=== PATIENT | female | born 1945 | race Caucasian/White ===

== ENCOUNTER → 2017-04-18 07:58 | Outpatient (CLI) | payer OTHER, SELFPAY ==
[2017-04-18 10:42] LABS: Hemoglobin 13.6 g/dl (12.0-15.0); Mean Corp Hgb Conc 33.2 g/gl (32-36); Mean Corpuscular Hgb 31.5 pg (27.0-32.0); Mean Corpuscular Volume 94.9 fL (81-99); Platelet Count 210 K/mm3 (150-450); RBC Distribution Width CV 12.3 % (11.6-14.6); RBC Distribution Width SD 42.3 fl (35.1-43.9); Red Blood Count 4.32 M/mm3 (4.2-5.4); White Blood Count 2.8 K/mm3 (4.4-11.0)
[2017-04-18 10:55] LABS: Scan Indicated on CBC? Y/N NO
[2017-04-18 11:08] LABS: ALB/GLOB Ratio 1.2 RATIO (0.9-2.4); AST(SGOT) 21 U/L (15-37); Alanine Aminotransfer ALT/SGPT 18 U/L (13-56); Albumin, Serum 3.5 g/dL (3.2-5.0); Alkaline Phosphatase 55 U/L (45-117); Anion Gap 11 (5-15); BUN 8 mg/dL (7-18); BUN/Creat Ratio 14.4 RATIO (10-20); CRP < 2.90 mg/L (0.0-3.0); Calcium,Total 8.5 mg/dL (8.5-10.1); Chloride 105 mmol/L (98-107); Creatinine, Serum 0.56 mg/dL (0.55-1.02); EST Glomerular Filtration Rate 115 mL/min (>60); Est Glom Filt Rate - Afr Amer 139 mL/min (>60); Ferritin 36 ng/mL (8-252); Free T3 2.8 pg/mL (2.18-3.98); Globulin 2.8 g/dL (2.2-4.2); Glucose 98 mg/dL (74-106); Potassium 3.8 mmol/L (3.5-5.1); Protein, Total 6.3 g/dL (6.4-8.2); Sodium Level 143 mmol/L (136-145); Thyroid Stim Hormone (TSH) 0.46 uIU/mL (0.358-3.74)
[2017-04-18 12:10] LABS: Hemoglobin A1c 5.5 % (4.2-6.3)
== END ==
PROVIDERS: Family Provider Family Medicine; PCP Family Medicine; Visit Provider Family Medicine
DX: D72.9 Disorder of white blood cells, unspecified (principal); E03.9 Hypothyroidism, unspecified
CPT/HCPCS: 80053; 82728; 83036; 84443; 84481; 85027; 86140

== ENCOUNTER → 2017-08-02 08:00 | Outpatient (CLI) | payer OTHER, SELFPAY | PROVIDERS: Family Provider Family Medicine; PCP Family Medicine; Visit Provider Family Medicine | DX: Z00.00 Encounter for general adult medical examination without abnormal findings (principal); E03.9 Hypothyroidism, unspecified; K90.9 Intestinal malabsorption, unspecified; E55.9 Vitamin D deficiency, unspecified | CPT/HCPCS: 36415; 83036 ==

== ENCOUNTER → 2017-10-10 09:19 | Outpatient (CLI) | payer OTHER, SELFPAY ==
[2017-10-10 10:57] LABS: Vitamin D,25 Hydroxy 63.8 ng/mL (29.95-100.01)
[2017-10-10 11:01] LABS: Absolute Lymphocyte Count 1.33 X10^3/ul (0.83-4.51); Absolute Neutrophil Count 2.1 X10^3/uL (2.0-7.7); Basophil# 0.01 X10^3/uL; Basophil% 0.3 % (0-1); Eosinophil# 0.03 X10^3/uL; Eosinophils% 0.8 % (0-5); Hematocrit 40.6 % (37-47); Hemoglobin 13.4 g/dl (12.0-15.0); Lymphocyte # 1.33 X10^3/ul (4.0); Lymphocyte % 36.6 % (19-41); Mean Corpuscular Hgb 31.2 pg (27.0-32.0); Mean Corpuscular Volume 94.6 fL (81-99); Mean Platelet Vol. 9.3 fl (6.2-12.0); Monocyte% 5.5 % (0-10); Neutrophil # 2.06 X10^3/uL (2.7-7.7); Neutrophil % 56.8 % (47-70); Platelet Count 256 K/mm3 (150-450); RBC Distribution Width CV 12.1 % (11.6-14.6); RBC Distribution Width SD 41.1 fl (35.1-43.9); Red Blood Count 4.29 M/mm3 (4.2-5.4); White Blood Count 3.6 K/mm3 (4.4-11.0)
[2017-10-10 11:02] LABS: POSITIVE COUNT NO; POSITIVE DIFFERENTIAL NO; POSITIVE MORPHOLOGY NO
[2017-10-10 11:28] LABS: AST(SGOT) 22 U/L (15-37); Alanine Aminotransfer ALT/SGPT 20 U/L (13-56); Albumin, Serum 3.5 g/dL (3.2-5.0); Alkaline Phosphatase 92 U/L (45-117); Anion Gap 8 (5-15); BUN 12 mg/dL (7-18); CRP 4.39 mg/L (0.0-3.0); Calcium,Total 8.7 mg/dL (8.5-10.1); Chloride 107 mmol/L (98-107); Cholesterol 181 mg/dL (200); EST Glomerular Filtration Rate 105 mL/min (>60); Est Glom Filt Rate - Afr Amer 127 mL/min (>60); Ferritin 57 ng/mL (8-252); Free T3 3.2 pg/mL (2.18-3.98); Globulin 3.6 g/dL (2.2-4.2); Glucose 96 mg/dL (74-106); High Density Lipoprotein 74 mg/dL; Potassium 3.8 mmol/L (3.5-5.1); Protein, Total 7.1 g/dL (6.4-8.2); Sodium Level 141 mmol/L (136-145); T4 Free Direct 1.14 ng/dL (0.76-1.46); Thyroid Stim Hormone (TSH) 0.45 uIU/mL (0.358-3.74); Triglycerides 39 mg/dL; Very Low Density Lipoprotein 8 mg/dL (5-40)
== END ==
PROVIDERS: Family Provider Family Medicine; PCP Family Medicine; Visit Provider Family Medicine
DX: E55.9 Vitamin D deficiency, unspecified (principal); E03.9 Hypothyroidism, unspecified; K90.9 Intestinal malabsorption, unspecified
CPT/HCPCS: 36415; 80053; 80061; 82306; 82728; 84439; 84443; 84481; 85025; 86140

== ENCOUNTER → 2018-06-16 07:46 | Outpatient (CLI) | payer MEDICARE, OTHER, SELFPAY ==
[2018-06-16 10:28] LABS: Absolute Lymphocyte Count 1.25 X10^3/ul (0.83-4.51); Absolute Neutrophil Count 1.1 X10^3/uL (2.0-7.7); Basophil# 0.02 X10^3/uL; Basophil% 0.7 % (0-1); Eosinophil# 0.05 X10^3/uL; Eosinophils% 1.9 % (0-5); Hematocrit 39.8 % (37-47); Hemoglobin 13.4 g/dl (12.0-15.0); Lymphocyte # 1.25 X10^3/ul (4.0); Lymphocyte % 46.6 % (19-41); Mean Corp Hgb Conc 33.7 g/gl (32-36); Mean Corpuscular Hgb 32.3 pg (27.0-32.0); Mean Corpuscular Volume 95.9 fL (81-99); Mean Platelet Vol. 9.8 fl (6.2-12.0); Monocyte% 11.2 % (0-10); Neutrophil # 1.06 X10^3/uL (2.7-7.7); Neutrophil % 39.6 % (47-70); Platelet Count 228 K/mm3 (150-450); RBC Distribution Width CV 12.3 % (11.6-14.6); RBC Distribution Width SD 43.1 fl (35.1-43.9); Red Blood Count 4.15 M/mm3 (4.2-5.4); White Blood Count 2.7 K/mm3 (4.4-11.0)
[2018-06-16 10:35] LABS: POSITIVE COUNT NO; POSITIVE DIFFERENTIAL NO; POSITIVE MORPHOLOGY NO
[2018-06-16 10:55] LABS: ALB/GLOB Ratio 1.2 RATIO (0.9-2.4); AST(SGOT) 24 U/L (15-37); Alanine Aminotransfer ALT/SGPT 24 U/L (13-56); Albumin, Serum 3.6 g/dL (3.2-5.0); Alkaline Phosphatase 66 U/L (45-117); Anion Gap 5 (5-15); BUN 10 mg/dL (7-18); BUN/Creat Ratio 18.5 RATIO (10-20); Chloride 107 mmol/L (98-107); Cholesterol 181 mg/dL (200); Creatinine, Serum 0.54 mg/dL (0.55-1.02); EST Glomerular Filtration Rate 118 mL/min (>60); Est Glom Filt Rate - Afr Amer 143 mL/min (>60); Globulin 2.9 g/dL (2.2-4.2); Glucose 82 mg/dL (74-106); High Density Lipoprotein 68 mg/dL; Potassium 3.9 mmol/L (3.5-5.1); Protein, Total 6.5 g/dL (6.4-8.2); Sodium Level 142 mmol/L (136-145); T4 Free Direct 1.11 ng/dL (0.76-1.46); Thyroid Stim Hormone (TSH) 1.02 uIU/mL (0.358-3.74)
== END ==
PROVIDERS: Family Provider Family Medicine; PCP Family Medicine; Referring Provider Family Medicine; Visit Provider Family Medicine
DX: E03.9 Hypothyroidism, unspecified (principal); K90.9 Intestinal malabsorption, unspecified
CPT/HCPCS: 36415; 80053; 82465; 83718; 84439; 84443; 85025

== ENCOUNTER → 2018-06-30 12:51 | Outpatient (CLI) | payer MEDICARE, OTHER, SELFPAY ==
[2018-06-30 14:13] LABS: CRP < 2.90 mg/L (0.0-3.0)
[2018-06-30 14:15] LABS: Homocysteine 7.2 umol/L (3.2-10.7)
[2018-06-30 14:56] LABS: Vitamin D,25 Hydroxy 48.7 ng/mL (29.95-100.01)
== END ==
PROVIDERS: Family Provider Family Medicine; PCP Family Medicine; Referring Provider Family Medicine; Visit Provider Family Medicine
DX: R79.82 Elevated C-reactive protein (CRP) (principal); E55.9 Vitamin D deficiency, unspecified; K90.9 Intestinal malabsorption, unspecified
CPT/HCPCS: 36415; 82306; 83090; 86140

== ENCOUNTER → 2019-07-23 11:33 | Outpatient (CLI) | payer MEDICARE, OTHER, SELFPAY ==
[2019-07-23 15:22] LABS: Alanine Aminotransfer ALT/SGPT 38 U/L (13-56); Cholesterol 226 mg/dL (200); Creatinine, Serum 0.66 mg/dL (0.55-1.02); EST Glomerular Filtration Rate 94 mL/min (>60); Est Glom Filt Rate - Afr Amer 114 mL/min (>60); Glucose 103 mg/dL (74-106); High Density Lipoprotein 85 mg/dL; Triglycerides 60 mg/dL; Very Low Density Lipoprotein 12 mg/dL (5-40)
== END ==
PROVIDERS: PCP Family Medicine; Visit Provider Family Medicine
DX: E03.9 Hypothyroidism, unspecified (principal); Z13.220 Encounter for screening for lipoid disorders; Z79.899 Other long term (current) drug therapy
CPT/HCPCS: 80061; 82565; 82947; 84460

== ENCOUNTER → 2020-01-17 07:50 | Outpatient (CLI) | payer MEDICARE, OTHER, SELFPAY ==
[2020-01-17 10:29] LABS: Vitamin D,25 Hydroxy 82.6 ng/mL
[2020-01-17 10:41] LABS: ALB/GLOB Ratio 1.1 RATIO (0.9-2.4); AST(SGOT) 28 U/L (15-37); Alanine Aminotransfer ALT/SGPT 32 U/L (13-56); Albumin, Serum 3.7 g/dL (3.2-5.0); Alkaline Phosphatase 60 U/L (45-117); Anion Gap 3 (5-15); BUN 15 mg/dL (7-18); BUN/Creat Ratio 24.9 RATIO (10-20); Chloride 104 mmol/L (98-107); EST Glomerular Filtration Rate 104 mL/min (>60); Est Glom Filt Rate - Afr Amer 125 mL/min (>60); Globulin 3.4 g/dL (2.2-4.2); Glucose 93 mg/dL (74-106); Potassium 3.8 mmol/L (3.5-5.1); Protein, Total 7.1 g/dL (6.4-8.2); Sodium Level 139 mmol/L (136-145); T4 Free Direct 1.06 ng/dL (0.76-1.46); Thyroid Stim Hormone (TSH) 1.62 uIU/mL (0.358-3.74)
== END ==
PROVIDERS: PCP Family Medicine; Referring Provider Family Medicine; Visit Provider Family Medicine
DX: E03.9 Hypothyroidism, unspecified (principal); E55.9 Vitamin D deficiency, unspecified
CPT/HCPCS: 36415; 80053; 82306; 84439; 84443

== ENCOUNTER → 2020-08-28 12:02 | Outpatient (CLI) | payer MEDICARE, OTHER, SELFPAY ==
[2020-08-28 15:14] LABS: Hematocrit 40.1 % (37-47); Hemoglobin 13.2 g/dL (12.0-15.0); Mean Corp Hgb Conc 32.9 g/dL (32-36); Mean Corpuscular Hgb 31.6 pg (27.0-32.0); Mean Corpuscular Volume 95.9 fL (81-99); Mean Platelet Vol. 10.2 fl (6.2-12.0); Platelet Count 247 K/mm3 (150-450); RBC Distribution Width CV 11.9 % (11.6-14.6); RBC Distribution Width SD 41.7 fl (35.1-43.9); Red Blood Count 4.18 M/mm3 (4.2-5.4); White Blood Count 5.4 K/mm3 (4.4-11.0)
[2020-08-28 15:57] LABS: ALB/GLOB Ratio 1.2 RATIO (0.9-2.4); AST(SGOT) 25 U/L (15-37); Alanine Aminotransfer ALT/SGPT 27 U/L (13-56); Albumin, Serum 3.7 g/dL (3.2-5.0); Alkaline Phosphatase 67 U/L (45-117); Anion Gap 7 (5-15); BUN 13 mg/dL (7-18); BUN/Creat Ratio 22.1 RATIO (10-20); Calcium,Total 8.7 mg/dL (8.5-10.1); Chloride 103 mmol/L (98-107); Creatinine, Serum 0.59 mg/dL (0.55-1.02); EST Glomerular Filtration Rate 107 mL/min (>60); Est Glom Filt Rate - Afr Amer 129 mL/min (>60); Globulin 3.1 g/dL (2.2-4.2); Glucose 87 mg/dL (74-106); Protein, Total 6.8 g/dL (6.4-8.2); Sodium Level 138 mmol/L (136-145); T4 Free Direct 1.18 ng/dL (0.76-1.46)
[2020-08-28 23:28] LABS: Vitamin D,25 Hydroxy 58.5 ng/mL
== END ==
PROVIDERS: PCP Family Medicine; Referring Provider Family Medicine; Visit Provider Family Medicine
DX: E55.9 Vitamin D deficiency, unspecified (principal); E03.9 Hypothyroidism, unspecified; K90.9 Intestinal malabsorption, unspecified
CPT/HCPCS: 36415; 80053; 82306; 84439; 84443; 85027

== ENCOUNTER → 2021-07-07 | Outpatient (CLI) | payer MEDICARE, OTHER, SELFPAY ==
[2021-07-07 10:17] LABS: Absolute Lymphocyte Count 1.28 X10^3/uL (0.83-4.51); Basophil# 0.03 X10^3/uL; Basophil% 1.1 % (0-1); Eosinophil# 0.05 X10^3/uL; Eosinophils% 1.8 % (0-5); Hematocrit 39.8 % (37-47); Lymphocyte # 1.28 X10^3/ul (0.83-4.51); Lymphocyte % 47.2 % (19-41); Mean Corp Hgb Conc 32.7 g/dL (32-36); Mean Corpuscular Hgb 31.3 pg (27.0-32.0); Mean Corpuscular Volume 95.9 fL (81-99); Mean Platelet Vol. 9.7 fl (6.2-12.0); Monocyte% 11.1 % (0-10); NRBC Flagged by Analyzer 0 % (0-5); Neutrophil # 1.04 X10^3/uL (2.7-7.7); Neutrophil % 38.4 % (47-70); Platelet Count 227 K/mm3 (150-450); RBC Distribution Width CV 11.8 % (11.6-14.6); RBC Distribution Width SD 41.1 fl (35.1-43.9); Red Blood Count 4.15 M/mm3 (4.2-5.4); White Blood Count 2.7 K/mm3 (4.4-11.0)
[2021-07-07 10:42] LABS: ALB/GLOB Ratio 1.1 RATIO (0.9-2.4); AST(SGOT) 23 U/L (15-37); Alanine Aminotransfer ALT/SGPT 24 U/L (13-56); Albumin, Serum 3.3 g/dL (3.2-5.0); Alkaline Phosphatase 57 U/L (45-117); Anion Gap 6 (5-15); BUN 14 mg/dL (7-18); BUN/Creat Ratio 28.1 RATIO (10-20); Calcium,Total 8.5 mg/dL (8.5-10.1); Chloride 109 mmol/L (98-107); Cholesterol 183 mg/dL (200); EST Glomerular Filtration Rate 129 mL/min (>60); Est Glom Filt Rate - Afr Amer 156 mL/min (>60); Glucose 99 mg/dL (74-106); High Density Lipoprotein 69 mg/dL; Potassium 3.8 mmol/L (3.5-5.1); Protein, Total 6.3 g/dL (6.4-8.2); Sodium Level 141 mmol/L (136-145); T4 Free Direct 1.05 ng/dL (0.76-1.46); Triglycerides 52 mg/dL; Very Low Density Lipoprotein 10 mg/dL (5-40)
[2021-07-07 10:48] LABS: Vitamin D,25 Hydroxy 65.9 ng/mL
== END | disposition home or self-care (01) ==
LOC: MFPLAB 09:00
PROVIDERS: PCP Family Medicine; Referring Provider Family Medicine; Visit Provider Family Medicine
DX: E55.9 Vitamin D deficiency, unspecified (principal); E03.9 Hypothyroidism, unspecified; Z13.220 Encounter for screening for lipoid disorders; K58.0 Irritable bowel syndrome with diarrhea
CPT/HCPCS: 36415; 80053; 80061; 82306; 84439; 84443; 85025

== ENCOUNTER → 2022-04-06 | Outpatient (CLI) | payer MEDICARE, OTHER, SELFPAY ==
[2022-04-06 12:58] LABS: AST(SGOT) 27 U/L (15-37); Alanine Aminotransfer ALT/SGPT 26 U/L (13-56); Albumin, Serum 3.7 g/dL (3.2-5.0); Alkaline Phosphatase 64 U/L (45-117); Anion Gap 6 (5-15); BUN 17 mg/dL (7-18); BUN/Creat Ratio 29.1 RATIO (10-20); Calcium,Total 9.6 mg/dL (8.5-10.1); Chloride 107 mmol/L (98-107); Creatinine, Serum 0.58 mg/dL (0.55-1.02); EST Glomerular Filtration Rate 107 mL/min (>60); Est Glom Filt Rate - Afr Amer 129 mL/min (>60); Globulin 3.6 g/dL (2.2-4.2); Glucose 110 mg/dL (74-106); Potassium 4.4 mmol/L (3.5-5.1); Protein, Total 7.3 g/dL (6.4-8.2); Sodium Level 139 mmol/L (136-145); T4 Free Direct 1.06 ng/dL (0.76-1.46); Thyroid Stim Hormone (TSH) 1.86 uIU/mL (0.358-3.74)
[2022-04-06 13:12] LABS: Vitamin D,25 Hydroxy 91.5 ng/mL
== END | disposition home or self-care (01) ==
PROVIDERS: PCP Family Medicine; Referring Provider Family Medicine; Visit Provider Nurse Practitioner Family
DX: K58.0 Irritable bowel syndrome with diarrhea (principal); R94.6 Abnormal results of thyroid function studies; E55.9 Vitamin D deficiency, unspecified
CPT/HCPCS: 36415; 80053; 82306; 84439; 84443

== ENCOUNTER → 2022-09-30 | Outpatient (CLI) | payer MEDICARE, OTHER, SELFPAY ==
[2022-09-30 10:45] LABS: Absolute Lymphocyte Count 0.96 X10^3/uL (0.83-4.51); Absolute Neutrophil Count 1.9 X10^3/uL (2.0-7.7); Basophil# 0.03 X10^3/uL; Basophil% 0.9 % (0-1); Eosinophil# 0.07 X10^3/uL; Eosinophils% 2.2 % (0-5); Hematocrit 40.1 % (37-47); Lymphocyte # 0.96 X10^3/ul (0.83-4.51); Lymphocyte % 29.9 % (19-41); Mean Corp Hgb Conc 32.4 g/dL (32-36); Mean Corpuscular Hgb 31.2 pg (27.0-32.0); Mean Corpuscular Volume 96.2 fL (81-99); Mean Platelet Vol. 9.3 fl (6.2-12.0); Monocyte# 0.28 X10^3/uL; Monocyte% 8.7 % (0-10); NRBC Flagged by Analyzer 0 % (0-5); Neutrophil # 1.87 X10^3/uL (2.7-7.7); Neutrophil % 58.3 % (47-70); Platelet Count 252 K/mm3 (150-450); RBC Distribution Width CV 12.5 % (11.6-14.6); RBC Distribution Width SD 43.9 fl (35.1-43.9); Red Blood Count 4.17 M/mm3 (4.2-5.4); White Blood Count 3.2 K/mm3 (4.4-11.0)
[2022-09-30 11:24] LABS: ALB/GLOB Ratio 1.1 RATIO (0.9-2.4); AST(SGOT) 18 U/L (15-37); Alanine Aminotransfer ALT/SGPT 21 U/L (13-56); Albumin, Serum 3.5 g/dL (3.2-5.0); Alkaline Phosphatase 62 U/L (45-117); Anion Gap 4 (5-15); BUN 13 mg/dL (7-18); BUN/Creat Ratio 22.5 RATIO (10-20); Calcium,Total 8.4 mg/dL (8.5-10.1); Chloride 109 mmol/L (98-107); Creatinine, Serum 0.58 mg/dL (0.55-1.02); EST Glomerular Filtration Rate 108 mL/min (>60); Est Glom Filt Rate - Afr Amer 130 mL/min (>60); Globulin 3.2 g/dL (2.2-4.2); Glucose 103 mg/dL (74-106); Protein, Total 6.7 g/dL (6.4-8.2); Sodium Level 140 mmol/L (136-145); T4 Free Direct 1.01 ng/dL (0.76-1.46); Thyroid Stim Hormone (TSH) 1.24 uIU/mL (0.358-3.74)
[2022-09-30 21:44] LABS: Vitamin D,25 Hydroxy 72.7 ng/mL
== END | disposition home or self-care (01) ==
LOC: MTLAB 08:02
PROVIDERS: PCP Family Medicine; Visit Provider Family Medicine
DX: K58.0 Irritable bowel syndrome with diarrhea (principal); E03.9 Hypothyroidism, unspecified; E55.9 Vitamin D deficiency, unspecified
CPT/HCPCS: 36415; 80053; 82306; 84439; 84443; 85025

== ENCOUNTER → 2022-11-19 | Outpatient (CLI) | payer MEDICARE, OTHER, SELFPAY ==
[2022-11-19 18:17] LABS: ALB/GLOB Ratio 1.1 RATIO (0.9-2.4); AST(SGOT) 20 U/L (15-37); Alanine Aminotransfer ALT/SGPT 25 U/L (13-56); Albumin, Serum 3.4 g/dL (3.2-5.0); Alkaline Phosphatase 59 U/L (45-117); Anion Gap 4 (5-15); BUN 12 mg/dL (7-18); BUN/Creat Ratio 20.2 RATIO (10-20); Calcium,Total 8.4 mg/dL (8.5-10.1); Chloride 105 mmol/L (98-107); Creatinine, Serum 0.59 mg/dL (0.55-1.02); EST Glomerular Filtration Rate 105 mL/min (>60); Est Glom Filt Rate - Afr Amer 127 mL/min (>60); Globulin 3.2 g/dL (2.2-4.2); Glucose 92 mg/dL (74-106); Lipase 63 U/L (13-75); Potassium 4.1 mmol/L (3.5-5.1); Protein, Total 6.6 g/dL (6.4-8.2); Sodium Level 136 mmol/L (136-145)
== END | disposition home or self-care (01) ==
PROVIDERS: PCP Family Medicine; Referring Provider Family Medicine; Visit Provider Family Medicine
DX: K58.0 Irritable bowel syndrome with diarrhea (principal)
CPT/HCPCS: 36415; 80053; 83690

== ENCOUNTER → 2023-04-11 | Outpatient (CLI) | payer MEDICARE, OTHER, SELFPAY ==
--- OUTSIDE RECORDS SUMMARY | 2023-04-11 09:27 | XMS RPT_ITS | CCD ---
Author Name Unknown Address [address] [place] [address] Organization [facility] Care Team Providers Care Mechanical Sound Technician Name Role Phone Anil Boss MD Primary Care Provider BOSS, ANIL A Primary Care Unavailable LUNA BEDOLLA Referring Unavailable LUNA BEDOLLA Attending Unavailable DONG, PHILLIPA Attending Unavailable BOSS, ANIL A Primary Care Unavailable BOSS, ANIL A Primary Care Unavailable FLAVIA GONZALEZ Attending Unavailable BOSS, ANIL A Primary Care Unavailable CAMILO SCHAEFER Attending Unavailable DONG, SWATI Attending Unavailable BOSS, ANIL A Primary Care Unavailable DONG, PHILLIPA Attending Unavailable BOSS, ANIL A Primary Care Unavailable DONG, PHILLIPA Attending Unavailable BOSS, ANIL A Primary Care Unavailable BOSS, ANIL A Primary Care Unavailable LUNA BEDOLLA Attending Unavailable DONG, PHILLIPA Attending Unavailable BOSS, ANIL A Primary Care Unavailable DONG, PHILLIPA Attending Unavailable BOSS, ANIL A Primary Care Unavailable BOSS, ANIL A Primary Care Unavailable ALLEY PATTERSON Attending Unavailable DONG, SWATI Attending Unavailable BOSS, ANIL A Primary Care Unavailable BOSS, ANIL A Primary Care Unavailable LUNA BEDOLLA Attending Unavailable DONG, PHILLIPA Attending Unavailable BOSS, ANIL A Primary Care Unavailable DONG, CHRISA Attending Unavailable BOSS, ANIL A Primary Care Unavailable DONG, PHLILIPA Attending Unavailable BOSS, ANIL A Primary Care Unavailable DONG, PHILLIPA Attending Unavailable BOSS, ANIL A Primary Care Unavailable BOSS, ANIL A Primary Care Unavailable CAMILO SCHAEFER Attending Unavailable BOSS, ANIL A Primary Care Unavailable ALLEY PATTERSON Referring Unavailable DONG, PHILLIPA Attending Unavailable BOSS, ANIL A Primary Care Unavailable DONG, CHRISA Attending Unavailable BOSS, ANIL A Primary Care Unavailable Allergies Allergy Classification Reported Allergen(s) Allergy Type Date of Onset Reaction(s) Facility (20 sources) EPINEPHrine; Translations: [EPINEPHRINE] Drug Allergy 07-08-2006 Mental Status Change [facility] Work Phone: Medications Completed/Discontinued Medications Medication Drug Class(es) Dates Sig (Normalized) Sig (Original) Activated Charcoal (8 sources) Start: 04-14-2022 End: 09-28-2022 Activated Charcoal ([employer]) 1 capsules, 2 times daily 90 capsule 0 04/14/2022 09/28/2022 Discontinued Problems Active Problems Problem Classification Problem Date Documented Da te Episodic/Chronic Adjustment disorders (16 sources) Adjustment disorder with mixed anxiety and depressed mood; Translations: [Adjustment disorder with mixed anxiety and depressed mood] Chronic Diseases of white blood cells (20 sources) Neutropenia; Translations: [Neutropenia, unspecified] Onset: 04-26-2017 04-26-2017 Chronic Malaise and fatigue (1 source) Fatigue; Translations: [Other fatigue] 02-11-2023 Episodic Other circulatory disease (1 source) Clearing throat - hawking; Translations: [Other specified symptoms and signs involving the circulatory and respiratory systems] Episodic Other gastrointestinal disorders (1 source) Constipation; Translations: [Constipation, unspecified] 09-28-2022 Episodic Other gastrointestinal disorders (1 source) Abnormal feces; Translations: [Other fecal abnormalities] 11-13-2022 Episodic Other gastrointestinal disorders (1 source) Other functional disorders of intestine; Translations: [Intestinal dysbiosis] 02-11-2023 Episodic Residual codes; unclassified (4 sources) Contact with and (suspected) exposure to mold (toxic); Translations: [Contact with and (suspected) exposure to mold] Episodic Viral infection (1 source) Disease caused by 2019-nCoV; Translations: [COVID-19] Episodic Past or Other Problems Problem Classification Problem Date Documented Da te Episodic/Chronic Other gastrointestinal disorders (20 sources) Loose stool; Translations: [Other fecal abnormalities] Onset: 08-29-2019 08-29-2019 Episodic Results Test Name Value Interpretation Reference Range Facil ity Encounters Encounter Date Encounter Type Care Provider Facility Start: 03-18-2023 End: 03-18-2023 ambulatory [facility] Facility:[facility] Start: 02-18-2023 End: 02-18-2023 ambulatory [facility] Facility:[facility] Start: 02-11-2023 End: 02-11-2023 ambulatory ANIL BOSS Facility:[facility] Start: 02-11-2023 End: 02-11-2023 ambulatory Alley Patterson TOILET ATTENDANT.VEHICLE FARE COLLECTOR Work Phone: Functional Medicine Procedures Date Procedure Procedure Detail Performing Clinician Start: 01-26-2020 Adult depression scr eening assessment Swati HOFFMAN Work Phone: Start: 11-20-2018 Lipid 1996 panel - S dori or Plasma Alley Patterson TOILET ATTENDANT.VEHICLE FARE COLLECTOR Work Phone: Start: 11-14-2008 Mammography Swati driscoll ADMISSION SPECIALIST Work Phone: Plan of Treatment Date Care Activity Detail Author Start: 11-21-2023 Lipid 1996 panel - Serum or Plasma Lipid Screening [facility] Start: 11-21-2023 Lipid panel Lipid Screening [facility] Start: 11-21-2023 LIPID SCREEN LIPID SCREEN [facility] Start: 10-15-2022 Covid-19 Vaccine () Covid-19 Vaccine () [facility] Start: 10-15-2022 Influenza vaccination [facility] Start: 02-14-2022 ADVANCE DIRECTIVE DISCUSSION ADVANCE DIRECTIVE DISCUSSION [facility] Start: 02-14-2022 DEPRESSION ASSESSMENT DEPRESSION ASSESSMENT [facility] Start: 11-20-2021 DIABETES SCREEN DIABETES SCREEN [facility] Start: 11-20-2021 Diabetes Screening Diabetes Screening [facility] Start: 10-15-2021 Influenza vaccination [facility] Start: 04-18-2021 Urine microalbumin profile DTaP,Tdap,Td Vaccine (2 - Td or Tdap) [facility] Start: 04-17-2021 COVID-19 VACCINE (3 - Booster for Merline series) COVID-19 VACCINE (3 - Booster for Merline series) [facility] Start: 02-14-2021 ADVANCE DIRECTIVE DISCUSSION ADVANCE DIRECTIVE DISCUSSION [facility] Start: 02-12-2021 COVID-19 VACCINE (3 - Booster for Merline series) COVID-19 VACCINE (3 - Booster for Merline series) [facility] Start: 01-25-2021 Adult depression screening assessment DEPRESSION SCREENING [facility] Start: 04-28-2012 BONE DENSITY BONE DENSITY [facility] Start: 04-28-2012 Bone Density Screening Bone Density Screening [facility] Start: 04-28-2012 Pneumococcal Vaccine: 65+ (1 - PCV) Pneumococcal Vaccine: 65+ (1 - PCV) [facility] Start: 04-28-2012 Pneumococcal Vaccine: 65+ (1 of 1 - PCV) Pneumococcal Vaccine: 65+ (1 of 1 - PCV) [facility] Start: 04-28-2012 PNEUMOCOCCAL: 65+ (1 - PCV) PNEUMOCOCCAL: 65+ (1 - PCV) [facility] Start: 04-28-2012 PNEUMOVAX AGE 65 AND OVER WITH 5YR LOOKBACK (#1) PNEUMOVAX AGE 65 AND OVER WITH 5YR LOOKBACK (#1) [facility] Start: 04-28-2012 Screening for osteoporosis Bone Density Screening [facility] Start: 11-14-2009 Mammography MAMMOGRAM [facility] Start: 2007 RSV Vaccine (1 - 1-dose 60+ series) RSV Vaccine (1 - 1-dose 60+ series) [facility] Start: 04-28-1997 SHINGRIX VACCINE (1 of 2) SHINGRIX VACCINE (1 of 2) [facility] Start: 04-28-1992 COLOGUARD (FIT-DNA) COLOGUARD (FIT-DNA) [facility] Start: 04-28-1992 Colonoscopy COLONOSCOPY [facility] Start: 04-28-1992 COLORECTAL CANCER SCREENING COLORECTAL CANCER SCREENING [facility] Start: 04-28-[address] COLONOGRAPHY [facility] Start: 04-28-1992 FECAL OCCULT BLOOD FECAL OCCULT BLOOD [facility] Start: 04-28-1992 Screening for malignant neoplasm of colon [facility] Start: 04-28-1992 SIGMOIDOSCOPY SIGMOIDOSCOPY [facility] Start: 04-28-1966 Urine microalbumin profile [facility] Start: 04-28-1965 HEPATITIS C SCREENING HEPATITIS C SCREENING [facility] Start: 04-28-1965 Hepatitis C screening Hepatitis C Screening [facility] FM GI EFFECTS, 1 STO OL SPECIMEN FM GI EFFECTS, 1 STOOL SPECIMEN Lab Routine Mold exposure Constipation, unspecified constipation type Ordered: 09/28/2022 [facility] Work Phone: Payers Date Payer Category Payer Medicare MEDICARE MEDICAR E A AND B [id number] 2017-Present [phone] [id number] [place] [id number] Medicare [id number] 2017 Medicare MEDICARE MEDICAR E A AND B [id number] 2017-Present [phone] [place] [address] Medicare [id number] 2017 Medicare [id number] 2017 Unknown PHYSICIANS M[employer] PHYSICIANS MUTUAL SUPPLEMENT [id number] 2017-Present [phone] [address] [place] [address] Indemnity [id number] 2017 Unknown PHYSICIANS [employer] PHYSICIANS MUTUAL SUPPLEMENT [id number] 2017-Present [phone] [address] [place] [address] Indemnity [id number] 2017 Unknown [id number] Social History Date Type Detail Facility [facility]: [facility]-26-2017 [facility] Work Phone: End: 04-26-1977 History of tobacco use Current smoker [facility] End: 04-26-1977 History of tobacco use Cigarette Smoker [facility] Start: 08-29-2019 Alcohol intake Current non-dr [employer] food & cooking of alcohol (finding) [facility] Start: 08-29-2019 End: 06-18-2022 Alcohol intake [facility] Start: 04-26-2017 Tobacco Comment Pt smoked 1-2 packs daily on & off x 10 years. [facility] Start: 1945 Sex Assigned At Not on file C [facility] Start: 06-09-2021 End: 10-30-2021 Exposure to SARS-CoV-2 (event) Not sure [facility] Start: 04-26-2017 Tobacco use and exposure Smokeless tobacco non-user [facility] Start: 08-29-2019 End: 06-18-2022 Tobacco use panel [facility] Adult Depression Screening Assessment 0 [facility] Start: 08-24-2019 Gender identity Identifies as female gender (finding) [facility] Start: 08-24-2019 Sexual orientation Heterosexual (yaron hernandez) [facility] Clinical Notes 07-14-2021 to 03-18-2023 Patient InstructionsAlley Patterson APRN.VEHICLE FARE COLLECTOR - 02/11/2023 2:30 PM Luna Kramer MD - 09/28/2022 8:30 AM Vinnie Bedolla MD - 04/14/2022 9:00 AM EST Note Date & Type Note Facility 03-18-2023 Note HNO ID: [id number] Author: SWATI UMANA LISW Service: ? Author Type: Whitewasher Type: Progress Notes Filed: 03/18/2023 09:31 Note Text: Virtual Visit I have communicated my name and active licensure. The patient's identity and physical location were verified at the time of this visit. The patient has been informed of the risks and benefits of -- and alternatives to -- treatment through a remote evaluation and consents to proceed with the evaluation remotely. DATE OF SERVICE: 03/18/2023 Duration: 60 min Start 8:30 am End 9:30 am SUBJECTIVE: Pt presented today with processing dynamics that triggered feelings of rejection. Diagnosis: adjustment disorder with mixed anxiety and depressed mood Mental Status: Mood: euthymic Affect: appropriate Thoughts/Associations:goal directed Suicidal/Homicidal Ideation: None expressed or evidenced PROGRESS TO DATE: Pt was able to reach a deep level of relaxation and to access somatic experiencing and memories, which appear to have significant impact on dis-empowerment and feelings of rejection. Pt began to work through these emotionally painful memories through conflict resolution and expression of feelings. Pt seemed to gain increased insight into how long repressed emotions seem to be impacting pain and unwanted behaviors. Pt was taught techniques for facilitating a state of relaxation and reducing stress level through inner child work. GENERAL COMPLIANCE WITH ONGOING TREATMENT PLAN: PT reports using the mind/body tools regularly since last session. Reports exploring issues that came up last session. INTERVENTION(S) Talk psychotherapy, [place], CBT interventions, Gestalt emotional Release work, ACT, positive psychology, Regression Therapy, Interactive Guided Imagery, Conflict resolution w Breath therapy, supportive interactions, interpretation of unconscious motivation, ego strengthening, Clarification of behavioral patterns, discussion of alternatives, identification of emotions, processing of reactions, validation and conflict exploration DAILY PRACTICE: Movement and excercise Breathe Mindfulness Meditation at least 2X per day Journaling daily Positive affirmations PAIN SCALE: FOLLOW UP: 4 week. ADDITIONAL NOTES: Pt to continue to explore issues that topher from today's session. PLAN: Continue to explore issues pertaining to inner child awareness and validation. CELSO Santiago LISW-S, [facility] Psychotherapist [facility] 02-18-2023 Note HNO ID: [id number] Author: SWATI UMANA LISW Service: ? Author Type: Whitewasher Type: Progress Notes Filed: 02/18/2023 14:02 Note Text: Virtual Visit I have communicated my name and active licensure. The patient's identity and physical location were verified at the time of this visit. The patient has been informed of the risks and benefits of -- and alternatives to -- treatment through a remote evaluation and consents to proceed with the evaluation remotely. DATE OF SERVICE: 02/18/2023 Duration: 60 min Start 1:00 pm End 2:00 pm SUBJECTIVE: Pt presented today with concern regarding medical care. Pt is contemplating advanced directives and what she wants and does not want for herself. Diagnosis: adjustment disorder with mixed anxiety and depressed mood Mental Status: Mood: neutral Affect: appropriate Thoughts/Associations:goal directed Suicidal/Homicidal Ideation: None expressed or evidenced PROGRESS TO DATE: Pt was able to discuss thoughts and emotions regarding her medical care, which appear to have significant impact on stress. Pt began to work through these emotional triggers through conflict resolution and expression of feelings. Pt seemed to gain increased insight into how she may process her wished for end of life issues. GENERAL COMPLIANCE WITH ONGOING TREATMENT PLAN: PT reports using the mind/body tools regularly since last session. Reports exploring issues that came up last session. INTERVENTION(S) Talk psychotherapy, [place], CBT interventions, supportive interactions, interpretation of unconscious motivation, ego strengthening, identification of emotions, processing of reactions, validation, identification and setting of healthy boundaries, communication exercises and conflict exploration DAILY PRACTICE: Movement and excercise Breathe Mindfulness Meditation at least 2X per day Journaling daily Positive affirmations PAIN SCALE: FOLLOW UP: 4 week. ADDITIONAL NOTES: Pt to continue to explore issues that topher from today's session. PLAN: Continue to explore issues pertaining to journal wishes for end of life and medical treatment. Swati Umana, CELSO, JOVAN, ASADT Holistic Psychotherapist [facility] 02-18-2023 Note HNO ID: [id number] Author: CAMILO SCHAEFER RD Service: ? Author Type: Registered Dietitian Type: Progress Notes Filed: 02/21/2023 10:13 Note Text: [facility] Nutrition Therapy: Follow-Up Assessment (Individual) VIRTUALVISITPN I have communicated my name and active licensure. The patient's identity and physical location were verified at the time of this visit. Either the patient or their legal statement services representative has been informed of the risks and benefits of -- and alternatives to -- treatment through a remote evaluation and consents to proceed with the evaluation remotely. Patient is located in the [facility] at the time of the virtual visit. Patient Name: Cody Meier Past Medical History: PAST MEDICAL HISTORY Diagnosis Date Gluten intolerance NEGATIVE MEDICAL HISTORY Other voice and resonance disorders due to multiple allergies Uterine prolapse Allergies: Epinephrine Current Medications/Supplements Current Outpatient Medications on File Prior to Visit Medication Sig Biocidin Advanced Formula ([employer]) Take 5 Drops by mouth three times a day. Olivirex ([employer]) Take one capsule up to three times per day between meals, 60ct O.N.E. Multivitamin (Pure Encapsulations) 1 capsule daily, with a meal, 60 ct Target GB-X ([employer]) Dissolve the content of 1 sachet daily in water (3-4 oz.), preferably lukewarm, and stir before consumption. Take on an empty stomach in the morning, before bed, or as directed by a healthcare professional. Digestion GB 180 ct. (Pure Encapsulations) Take 1 capsule with meals OTC NUTRITIONAL SUPPLEMENT lysine Magnesium Glycinate 120 mg (Pure Encapsulations) Take 2 capsules in the evening and 2 in the daytime O.N.E. [place]coe (Pure Encapsulations) Take 2 capsules by mouth daily with food. Vitamin D3 5000 IUs (Pure Encapsulations) Take 1 capsule by mouth daily with food. No current facility-administered medications on file prior to visit. Primary ICD-10 Diagnosis Addressed: Fatigue, unspecified type [R53.83] Provider Nutrition NotesFollow up with packing machine feeder to ensure sufficient daily protein. Sufficient protein will help with fatigue and sugar cravings Status of Chief Concerns Stol inconennce (main concern)- GONE Main concern today 02/2023: ensure sufficient daily protein. Nutrition Assessment (updated 02/18/23) Current Symptom Review: continued fatigue and sugar cravings Food and Nutrition History (update): Vegan, uses Pea protein Current Adverse Reactions to Foods: No Diet Recall: Yes 24 Hour Recall Breakfast: Smoothie: almond yogurt (homemade)+ 1 banana +spring mix + vital proteins marine collagen- 3 tablespoons Lunch: saurkraut, red lentil and sweet potato soup Chicken thighs Dinner: hit or miss, sometimes popcorn Snacks: not specified Beverages: 1/3 cup of kombucha, 1/2 cup of saurkaut Steel cut oats Anthropometrics There were no vitals taken for this visit. Last Height: Last 1 Encounter Ht Readings: Date: Ht: 11/29/2019 162.6 cm (5' 4 ) Last Weight: Last Wt 11/29/19 : 53.9 kg (118 lb 14.4 oz) 08/29/19 : 54.6 kg (120 lb 4.8 oz) 04/30/19 : 54.1 kg (119 lb 4.8 oz) Wt: 53.9 kg (118 lb 14.4 oz) BMI: 20.41 kg/(m2) Learning Needs Assessment: Barriers to Learning: Ready to Learn (no barriers noted) Assessed motivation to learn: moderate Biochemical and Laboratory Data Conventional/Advanced Testing See uploaded labs Vitamin D Apr 06 2022- 91.5 Laboratory Values Addressed: None addressed today Nutrition Prescription Energy: RMR can't be calculated - Weight unrecorded in last 120 days. Protein: 1.0g/kg Nutrients of Concern: Protein Nutrition Diagnosis: Inadequate Protein Energy Intake related to limited education on daily protein needs and protein rich foods as evidenced by diet history described, est less than 65 grams of protein per day. Status: New Nutrition Intervention (New and Reinforcement): Current Nutrition Goal(s): promote adequate nutritional intake to meet macro and micronutrient needs Food Plan: Custom Aim for 65-70 grams of protein per day Try to not skip dinner. If not that hungry, try to have something higher in protein like tofu or a class of soymilk Cook quinoa in bone broth Add pea protein Add nuts and seeds as snacks, sprinkle seeds like hemp seeds on meals Add nutritional yeast to meals Make sure to include beans, lentils, tofu, tempeh daily Use this Protein [place] - modify for vegan 1/4 cup nuts/seeds = 5-8g 1/4 cup flax: 5g 1/4 cup pumpkin seeds: 7g 1 ounce conor seeds: 5g 3 Tbsp. hemp seeds = 10g 2 Tbsp. nut butter = 7g 1 cup bone broth = 7-9g 1 oz animal protein or fish = 7g 1 egg = 6g 1 egg white = 3 g 1 cup Bengali yogurt = 13g 3 oz. firm tofu = 7g 1 cup organic soymilk=6-8g 1/2 cup edamame: 8g 1/2 cup beans (cooked) = 7g 1 cup lentils (cooked) = 18g 1 c (more content not included)... [facility] 02-11-2023 Note HNO ID: [id number] Author: Alley Patterson APRN.VEHICLE FARE COLLECTOR Service: ? Author Type: Nurse Practitioner Type: Progress Notes Filed: 02/11/2023 3:12 PM Note Text: Follow-up Visit - virtual I have communicated my name and active licensure. The patient's identity and physical location were verified at the time of this visit. Either the patient or their legal statement services representative has been informed of the risks and benefits of -- and alternatives to -- treatment through a remote evaluation and consents to proceed with the evaluation remotely. Patient: Cody Meier There is no height or weight on file to calculate BMI. RMR can't be calculated - Weight unrecorded in last 120 days. Waist measurement: No waist measurement recorded. BP: ALLERGIES Allergen Reactions Epinephrine Mental Status Change passed out Current Outpatient Medications on File Prior to Visit Medication Sig O.N.E. Multivitamin (Pure Encapsulations) 1 capsule daily, with a meal, 60 ct Target GB-X ([employer]) Dissolve the content of 1 sachet daily in water (3-4 oz.), preferably lukewarm, and stir before consumption. Take on an empty stomach in the morning, before bed, or as directed by a healthcare professional. Digestion GB 180 ct. (Pure Encapsulations) Take 1 capsule with meals OTC NUTRITIONAL SUPPLEMENT lysine Magnesium Glycinate 120 mg (Pure Encapsulations) Take 2 capsules in the evening and 2 in the daytime O.N.E. [place] (Pure Encapsulations) Take 2 capsules by mouth daily with food. Vitamin D3 5000 IUs (Pure Encapsulations) Take 1 capsule by mouth daily with food. No current facility-administered medications on file prior to visit. PAST MEDICAL HISTORY Diagnosis Date Gluten intolerance NEGATIVE MEDICAL HISTORY Other voice and resonance disorders due to multiple allergies Uterine prolapse PAST SURGICAL HISTORY Procedure Laterality Date ENDOSCOPY, ESOPHAGUS for hoarseness-negative LIGATE FALLOPIAN TUBE Tubal ligation PAST SURGICAL HISTORY OF left breast biopsy Social History Tobacco Use Smoking status: Former Types: Cigarettes Quit date: 04/26/1977 Years since quittin.8 Smokeless tobacco: Never Tobacco comments: Pt smoked 1-2 packs daily on AND off x 10 years. Substance Use Topics Alcohol use: No Alcohol/week: 1.0 standard drink of alcohol Types: 1 Glasses of Wine (5oz) per week Drug use: No Functional Medicine Timeline MSQ: Patient Entered Questionnaire PROMIS Scale T-Scores -- HIGHER SCORES BETTER PROMIS Global Health - (T-Scores - the mean of general population = 50. Five points is a clinically meaningful difference.) 12/29/2022 01/01/2023 02/09/2023 Physical T-Score 50.8 50.8 54.1 Mental T-Score 48.3 48.3 56 Depression Screening: PHQ-9 04/28/2019 01/26/2020 Score 2 0 PHQ-9 Self Harm 04/28/2019 01/26/2020 Question 9 Not at all Not at all PHQ-9 Self-Harm (Item 9) response options: 0 Not at all 1 Several days 2 More than half the days 3 Nearly every day PHQ-9 Levels: 0-4 Minimal depression 5-9 Mild depression 10-14 Moderate depression 15-19 Moderately severe depression 20-27 Severe depression February 11, 2023 Alley Patterson APRN.VEHICLE FARE COLLECTOR Subjective: Goals: Review GI Effects Things are going well. Has seen dieticians twice since last visit. Struggles with fatigue. Hx of mold. Mold testing now negative. Struggles with depression - works hard with lifestyle, has had side effects from antidepressants. Having some bloating and discomfort, random. Had an episode of diarrhea this week, incontinent during the night. Took imodium. Didn't feel sick. No stool for 3 days now after imodium Diet - careful with fat, low dairy. Whole foods, organic Supplements - ONE multi, Target GBX, digestion GB, lysine, mag glycinate, One [place], calcium citrate, Vit D 5000, evening primrose oil, quercetin September 28, 2022 Luna Bedolla MD Subjective: Virtual 77 yr old female here for her follow up visit from june 2022. Pt has a hx of mold exposure,and has been using binders, charcoal and support with NAC. She send her last test in August with RTL in August/ Taking gi detox one per day until they are gone. Also, uses wheat grass in her smoothie. Gut issues are all good, specific food related. Depression improved, using food to help this. July 08, 2022 Luna Bedolla MD Subjective: Virtual 77 yr old female, here for follow up. Has issues with mold exposure. Having NAC and charcoal for mold. Craving carbs and has gained weight. Wt # 126 now.5'3 Walking 3.5 miles per day, doing some weights. Some constipation, incomplete evacuation. April 14, 2022 Luna Bedolla MD Subjective: Virtual Has been cooking, over carbing. She was feeling great about this. Not being so obsessed with her self care. Having issues with mold. Having cheese, no problems, except her stomach is uneasy. Has urethral carbuncle, used e (more content not included)... [facility] 02-11-2023 Instructions Alley Patterson APRN.MAYRA - 02/11/2023 3:12 PM EST Plan and Lifestyle Prescription Plan/Instructions/Resources: Reviewed labs and plan with patient. Discussed opportunities to communicate with myself and team if needed before next appointment, ie, MyChart, telephone, virtual visits. Continue current supplements For fatigue: Follow up with packing machine feeder to ensure sufficient daily protein. Sufficient protein will help with fatigue and sugar cravings Akkermansia probiotic - by Pendulum, take 1 tab daily. For gut balancing and healing: Biocidin - is an herbal supplement designed to balance overgrowth of bacteria. Start slowly with 1-2 drops, 1-2 times daily, working up to 7 drops twice daily. Take this for 1 month Olivirex (Bio-Botanical) Sig: Take one capsule, three times per day between meals, 60ct Medications/Supplements Recommended: Medication orders placed this encounter Biocidin Advanced Formula ([employer]ot[employer] Research) Sig: Take 5 Drops by mouth three times a day. Olivirex (Bio-Botanical) Sig: Take one capsule up to three times per day between meals, 60ct I recommend the supplements from the [facility] Healthy Living Store Online Store at [email or web address] as we have thoroughly evaluated the research and use only highest quality supplements. Please use code: functional. Future Plans: Follow up: Please schedule a follow up visit with the following Caregivers: Provider: 12weeks LIFESTYLE PRESCRIPTION Functional Nutrition: Per groundwater consultant Sleep: Sleep goal for most adults is a minimum of 7-9 hours nightly. Exercise Prescription: Numerous studies confirm the benefits of regular moderate aerobic exercise (walking, swimming, elliptical machine, cycling, etc.) for 30 min 5 days per week (150 min goal). Stress Management: 1) Please look into this Heart Rate Variability BioFeedback Tool (www.heartmath.org). 2) A regular, daily meditation practice of at least 15-20 minutes will change your brain--as well as your genes! Behavioral Health Therapist: If I recommended counseling or individual therapy, please schedule an individual appointment with our Functional Medicine Behavioral Health Therapist after your visit today. The Behavioral Health Therapist helps patients identify and understand feelings and behaviors, experience the process of making positive change, and gain healthy coping skills. Health Coaching: Please consider scheduling with our [place] for Functional Medicine health coaches for a phone or virtual visit for accountability, goal setting and help with behavior change release manager the next 6-8 weeks to be successful with your goals. [phone]. Smart phone apps to begin a meditative practice: Headspace (free for first 10 days) Insight Meditation Timer- (Free)-Great all-around norma to use for guided meditations of many different types and lengths or just to use as a tool to time and track your meditation practice. This is my absolute favorite! Calm- (Free) Walking Meditations-($1.99)- Get your walk AND meditation done together. A good way to start out for individuals who feel they just can't sit still to begin a meditative practice. During the next 6-8 weeks you'll be working on your diet plan discussed with our groundwater consultant, allowing for gentle detoxification and decreasing inflammation - while we are gathering your lab results and combining those with your complete history to formulate a very personalized treatment plan. LAB results: Due to the complexity of the testing performed, we are not able to review labs via [employer] or over the phone, but please know, if any of your labs are critical we will contact you. Otherwise, we will review all your labs at your next visit. We will go over a lot of information during your follow up visit - so please be well-rested and you may want to bring someone with you, if possible. Also make sure to schedule with the groundwater consultant (this will not happen automatically) as you did with your first visit so that she can review nutritional aspects of your treatment plan. By your 3rd visit, as things are improving, we will likely transition you to one of our very capable Certified Nurse Practitioners/Physician Assistants for further follow-up. Potential future labs: Any Madi labs ordered take about 4 weeks to return. Do them as soon as possible so that we have the results before your next appointment. You can access them on the [employer] website and it can be beneficial if you review them prior to your next visit. [email or web address]. Read about NutrEval if this was ordered. *Alley Patterson APRN.VEHICLE FARE COLLECTOR documented in this encounter [facility] 02-11-2023 History of Presen t illness Narrative Follow-up Visit - virtual I have communicated my name and active licensure. The patient's identity and physical location were verified at the time of this visit. Either the patient or their legal statement services representative has been informed of the risks and benefits of -- and alternatives to -- treatment through a remote evaluation and consents to proceed with the evaluation remotely. Patient: Cody eMier There is no height or weight on file to calculate BMI. RMR can't be calculated - Weight unrecorded in last 120 days. Waist measurement: No waist measurement recorded. BP: ALLERGIES Allergen Reactions Epinephrine Mental Status Change passed out Current Outpatient Medications on File Prior to Visit Medication Sig O.N.E. Multivitamin (Pure Encapsulations) 1 capsule daily, with a meal, 60 ct Target GB-X (Allergy Research Group) Dissolve the content of 1 sachet daily in water (3-4 oz.), preferably lukewarm, and stir before consumption. Take on an empty stomach in the morning, before bed, or as directed by a healthcare professional. Digestion GB 180 ct. (Pure Encapsulations) Take 1 capsule with meals OTC NUTRITIONAL SUPPLEMENT lysine Magnesium Glycinate 120 mg (Pure Encapsulations) Take 2 capsules in the evening and 2 in the daytime O.N.E. [place]coe (Pure Encapsulations) Take 2 capsules by mouth daily with food. Vitamin D3 5000 IUs (Pure Encapsulations) Take 1 capsule by mouth daily with food. No current facility-administered medications on file prior to visit. PAST MEDICAL HISTORY Diagnosis Date Gluten intolerance NEGATIVE MEDICAL HISTORY Other voice and resonance disorders due to multiple allergies Uterine prolapse PAST SURGICAL HISTORY Procedure Laterality Date ENDOSCOPY, ESOPHAGUS for hoarseness-negative LIGATE FALLOPIAN TUBE Tubal ligation PAST SURGICAL HISTORY OF left breast biopsy Social History Tobacco Use Smoking status: Former Types: Cigarettes Quit date: 04/26/1977 Years since quittin.8 Smokeless tobacco: Never Tobacco comments: Pt smoked 1-2 packs daily on & off x 10 years. Substance Use Topics Alcohol use: No Alcohol/week: 1.0 standard drink of alcohol Types: 1 Glasses of Wine (5oz) per week Drug use: No Functional Medicine Timeline MSQ: Patient Entered Questionnaire PROMIS Scale T-Scores -- HIGHER SCORES BETTER PROMIS Global Health - (T-Scores - the mean of general population = 50. Five points is a clinically meaningful difference.) 12/29/2022 01/01/2023 02/09/2023 Physical T-Score 50.8 50.8 54.1 Mental T-Score 48.3 48.3 56 Depression Screening: PHQ-9 04/28/2019 01/26/2020 Score 2 0 PHQ-9 Self Harm 04/28/2019 01/26/2020 Question 9 Not at all Not at all PHQ-9 Self-Harm (Item 9) response options: 0 Not at all 1 Several days 2 More than half the days 3 Nearly every day PHQ-9 Levels: 0-4 Minimal depression 5-9 Mild depression 10-14 Moderate depression 15-19 Moderately severe depression 20-27 Severe depression February 11, 2023 Alley Patterson APRN.VEHICLE FARE COLLECTOR Subjective: Goals: Review GI Effects Things are going well. Has seen dieticians twice since last visit. Struggles with fatigue. Hx of mold. Mold testing now negative. Struggles with depression - works hard with lifestyle, has had side effects from antidepressants. Having some bloating and discomfort, random. Had an episode of diarrhea this week, incontinent during the night. Took imodium. Didn't feel sick. No stool for 3 days now after imodium Diet - careful with fat, low dairy. Whole foods, organic Supplements - ONE multi, Target GBX, digestion GB, lysine, mag glycinate, One [place]coe, calcium citrate, Vit D 5000, evening primrose oil, quercetin September 28, 2022 Luna Bedolla MD Subjective: Virtual 77 yr old female here for her follow up visit from june 2022. Pt has a hx of mold exposure,and has been using binders, charcoal and support with NAC. She send her last test in August with RTL in August/ Taking gi detox one per day until they are gone. Also, uses wheat grass in her smoothie. Gut issues are all good, specific food related. Depression improved, using food to help this. July 08, 2022 Luna Bedolla MD Subjective: Virtual 77 yr old female, here for follow up. Has issues with mold exposure. Having NAC and charcoal for mold. Craving carbs and has gained weight. Wt # 126 now.5'3 Walking 3.5 miles per day, doing some weights. Some constipation, incomplete evacuation. April 14, 2022 Luan Bedolla MD Subjective: Virtual Has been cooking, over carbing. She was feeling great about this. Not being so obsessed with her self care. Having issues with mold. Having cheese, no problems, except her stomach is uneasy. Has urethral carbuncle, used estrogen cream. February 10, 2022 Luna Bedolla MD Subjective: Virtual Pt wanting to review her present plan, had a lot of stress with recent travels. Mold is her main concern November 05, 2021 Luna Bedolla MD Subjective: Virtual 76 yr old with mold, extremity neuropathy, loose stools. 10/16/21-Just got covid, throat issues, phlegm , feeling like choking. She was very tired. Headaches and body aches. Her gut is good. Stopped the detox in July and could eat all kinds of food, gained 5 lbs. Walking daily. No SOB. July 20, 2021 Luna Bedolla MD Subjective: Virtual 76 yr old with mold, extremity neuropathy, loose stools. Stopped the s boulardii 6 weeks ago, tried the gi detox one per day based on tolerance, ok until July 03, so stopped all. Feeling overwhelmed responsibilities to care for her living space. April 16, 2021 Luna Bedolla MD ( [place]) Subjective: Virtual 75 yr old female with hx lower extremity neuropathy, loose stools, + mold and mycotoxins. Pt was last seen January 2021. Things are under control, spelt organic pretzels- if she has too many daily then having issues. Stress is good, staying at home, sewing, one volunteer day. Spending time with food prep. January 16, 2021 Luna Bedolla MD Subjective: Virtual The diarrhea situation was ? Related to a lot of food fresh at the same time. Then it settled down. Sauerkraut caused issues. Going out it can be hard. Exercise now more. 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 October 15, 2020 Luna Bedolla MD Subjective: Virtual Some ways doing well and then relapse - some diarrhea for weeks. Started to eat fresh tomatoes a lot. All of a sudden- she gets happy in August/ September ( has SAD ) uses a sun box daily. Her friend started her in a book group that was wonder. Review of Systems: fatigue Objective: virtual There were no vitals taken for this visit. Bioelectrical Impedance Analysis Results by [employer] Recent Results from: 11/20/18 at 7:44 AM BMI: 20.41 kg/m General Test Result Range Phase Angle (PA) 4.1 Min: 5.2 Mean: 6.2 Max: 7.2 Below min by 1.1 Basal Metabolic Rate (BMR) 1274 Min: 1098.4 Mean: 1245.8 Max: 1393.2 Above midpoint by 28.2 (59.6% of rng) Fat & Fat Free Mass Test Result Range Fat (lbs) 37.3 Min: 35.8 Mean: 56.9 Max: 78 Lower than midpoint by 19.6 (3.6% of rng) Fat % 32.4 Min: 29.9 Mean: 36.8 Max: 43.7 Lower than midpoint by 4.4 (18.1% of rng) Fat Free Mass (FFM) lbs 77.9 Min: 79.3 Mean: 93.4 Max: 107.5 Below min by 1.4 Total Body Water Test Result Range TBW (lbs) 55 Min: 59.3 Mean: 70.1 Max: 80.9 Below min by 4.3 TBW % of FFM 70.6 Min: 73.6 Mean: 75 Max: 76.4 Below min by 3 Intracellular Water Test Result Range ICW (lbs) 28.8 Min: 32.4 Mean: 36.8 Max: 41.2 Below min by 3.6 ICW % of FFM 37 Min: 37.9 Mean: 39.5 Max: 41.1 Below min by .9 Extracellular Water Test Result Range ECW (lbs) 26.2 Min: 26.9 Mean: 33.3 Max: 39.7 Below min by .7 ECW % of FFM 33.6 Min: 33.7 Mean: 35.4 Max: 37.1 Below min by .1 Physical Exam: virtual CURRENT Functional Medicine Assessment/ PLAN Nutritional Assessment Low fat , GF Digestive Function Bloating, Loose stools--> fecal incontinence-->gone ( slight due to a lot of tomatoes/prepared foods/ gluten) Gurgling , gas SIBO negative Madi GI Effects High fecal fats High beta glucuronidase Dysbiosis 01/07 GI Effects 10/2022 - reviewed with patient 01/2023 Maldigestion 9 - low pancreatic elastase Inflammation 0 Dysbiosis 3 Metabolic Imbalance 0 Infection 2 - +4 enterocobacter cloacae, + 1 yeast Component Latest Ref Rng & Units 11/18/2022 ELASTASE-1 CONCENTRATION >=200 ug/g 328 ELASTASE INTERPRETATION Normal Normal Inflammation/Immune Function Dry burning eyes, and throat- gone Throat clearing- CBC reviewed 05/2021 improved Energy Production/Function: Depression- lifted ( target gbx is great ) GONE Some confusion noted Detoxification Function Mold exposure- 15 YRS AGO, 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 ) ( 4419.12 previous GPL 01/2019 / no provoking ) GPL Sep 2020 Gliotoxin GONE Ochratoxin 70.18 Sterigm o mycophenolic acid 47.16 fusarium-Enniatin 2.02 Lesia 0 Citrinin 166.57 GPL Mar 24, 2021 ( GI Detox, NAC, s boulardii, glutathione ) Ochratoxin A - 14.37 All others 0 RTL 03/2022 Ochratoxin A 4.356 Tricothecenes 0.16 Gliotoxin equivocal Zear 0.812 RTL 08/2022 Ochratoxin A 0.335 not present Tricothecenes 0.12 present very lo Gliotoxin 0.27 not present Zear 0.257 not present 01/2021 Scr 0.60 GFR 104 8924-5265 mold in her home, cleaned up Chemicals + Sweating now Hormonal Function: Menopause Prolapsed uterus-Pessary Structural Function Assessment Assessment: K59.89 Intestinal dysbiosis (primary encounter diagnosis) R53.83 Fatigue, unspecified type Plan and Lifestyle Prescription Plan/Instructions/Resources: Reviewed labs and plan with patient. Discussed opportunities to communicate with myself and team if needed before next appointment, ie, MyChart, telephone, virtual visits. Continue current supplements For fatigue: Follow up with packing machine feeder to ensure sufficient daily protein. Sufficient protein will help with fatigue and sugar cravings Akkermansia probiotic - by [employer], take 1 tab daily. For gut balancing and healing: Biocidin - is an herbal supplement designed to balance overgrowth of bacteria. Start slowly with 1-2 drops, 1-2 times daily, working up to 7 drops twice daily. Take this for 1 month Olivirex (Bio-Botanical) Sig: Take one capsule, three times per day between meals, 60ct Medications/Supplements Recommended: Medication orders placed this encounter Biocidin Advanced Formula ([employer] Research) Sig: Take 5 Drops by mouth three times a day. Olivirex (Bio-Botanical) Sig: Take one capsule up to three times per day between meals, 60ct I recommend the supplements from the [facility] Healthy Living Store Online Store at [email or web address] as we have thoroughly evaluated the research and use only highest quality supplements. Please use code: functional. Future Plans: Follow up: Please schedule a follow up visit with the following Caregivers: Provider: 12weeks LIFESTYLE PRESCRIPTION Functional Nutrition: Per groundwater consultant Sleep: Sleep goal for most adults is a minimum of 7-9 hours nightly. Exercise Prescription: Numerous studies confirm the benefits of regular moderate aerobic exercise (walking, swimming, elliptical machine, cycling, etc.) for 30 min 5 days per week (150 min goal). Stress Management: 1) Please look into this Heart Rate Variability BioFeedback Tool (www.heartmath.org). 2) A regular, daily meditation practice of at least 15-20 minutes will change your brain--as well as your genes! Behavioral Health Therapist: If I recommended counseling or individual therapy, please schedule an individual appointment with our Functional Medicine Behavioral Health Therapist after your visit today. The Behavioral Health Therapist helps patients identify and understand feelings and behaviors, experience the process of making positive change, and gain healthy coping skills. Health Coaching: Please consider scheduling with our [place] for Functional Medicine health coaches for a phone or virtual visit for accountability, goal setting and help with behavior change release manager the next 6-8 weeks to be successful with your goals. [phone]. Smart phone apps to begin a meditative practice: Headspace (free for first 10 days) Insight Meditation Timer- (Free)-Great all-around norma to use for guided meditations of many different types and lengths or just to use as a tool to time and track your meditation practice. This is my absolute favorite! Calm- (Free) Walking Meditations-($1.99)- Get your walk AND meditation done together. A good way to start out for individuals who feel they just can't sit still to begin a meditative practice. During the next 6-8 weeks you'll be working on your diet plan discussed with our groundwater consultant, allowing for gentle detoxification and decreasing inflammation - while we are gathering your lab results and combining those with your complete history to formulate a very personalized treatment plan. LAB results: Due to the complexity of the testing performed, we are not able to review labs via [employer] or over the phone, but please know, if any of your labs are critical we will contact you. Otherwise, we will review all your labs at your next visit. We will go over a lot of information during your follow up visit - so please be well-rested and you may want to bring someone with you, if possible. Also make sure to schedule with the groundwater consultant (this will not happen automatically) as you did with your first visit so that she can review nutritional aspects of your treatment plan. By your 3rd visit, as things are improving, we will likely transition you to one of our very capable Certified Nurse Practitioners/Physician Assistants for further follow-up. Potential future labs: Any Madi labs ordered take about 4 weeks to return. Do them as soon as possible so that we have the results before your next appointment. You can access them on the [employer] website and it can be beneficial if you review them prior to your next visit. [email or web address]. Read about NutrEval if this was ordered. *Alley Patterson APRN.CNP I spent a total of 30 minutes on the date of the service which included flri-cr-rcat patient care. documented in this encounter [facility] 01-21-2023 Note HNO ID: [id number] Author: Swati Umana LISW Service: ? Author Type: Whitewasher Type: Progress Notes Filed: 01/21/2023 9:39 AM Note Text: Virtual Visit I have communicated my name and active licensure. The patient's identity and physical location were verified at the time of this visit. The patient has been informed of the risks and benefits of -- and alternatives to -- treatment through a remote evaluation and consents to proceed with the evaluation remotely. DATE OF SERVICE: 01/21/2023 Duration: 60 min Start 8:30 am End 9:30 am SUBJECTIVE: Pt presented today with feeling good with purpose. Pt has a cold. Pt processing and dying. Diagnosis: adjustment with mixed anxiety and depressed mood Mental Status: Mood: euthymic Affect: appropriate Thoughts/Associations:goal directed Suicidal/Homicidal Ideation: None expressed or evidenced PROGRESS TO DATE: Pt was able to process thoughts and emotions regarding and dying GENERAL COMPLIANCE WITH ONGOING TREATMENT PLAN: PT reports using the mind/body tools regularly since last session. Reports exploring issues that came up last session. INTERVENTION(S) Talk psychotherapy, [place], CBT interventions, supportive interactions, interpretation of unconscious motivation, ego strengthening, identification of emotions, processing of reactions, validation. DAILY PRACTICE: Movement and excercise Breathe Mindfulness Meditation at least 2X per day Journaling daily Positive affirmations PAIN SCALE: FOLLOW UP: 4 week. ADDITIONAL NOTES: Pt to continue to explore issues that topher from today's session. PLAN: Continue to explore issues pertaining to and dying. Pt will submit advanced directives. CELSO Santiago, JOVAN, ACHT Holistic Psychotherapist [facility] 01-04-2023 Note HNO ID: [id number] Author: Camilo Schaefer RD Service: ? Author Type: Registered Dietitian Type: Progress Notes Filed: 01/04/2023 11:26 AM Note Text: [facility] Nutrition Therapy: Follow-Up Assessment (Individual) VIRTUALVISITPN I have communicated my name and active licensure. The patient's identity and physical location were verified at the time of this visit. Either the patient or their legal statement services representative has been informed of the risks and benefits of -- and alternatives to -- treatment through a remote evaluation and consents to proceed with the evaluation remotely. Patient is located in the [facility] at the time of the virtual visit. Patient Name: Cody Meier Past Medical History: PAST MEDICAL HISTORY Diagnosis Date Gluten intolerance NEGATIVE MEDICAL HISTORY Other voice and resonance disorders due to multiple allergies Uterine prolapse Allergies: Epinephrine Current Medications/Supplements Current Outpatient Medications on File Prior to Visit Medication Sig O.N.E. Multivitamin (Pure Encapsulations) 1 capsule daily, with a meal, 60 ct Target GB-X (Allergy Research Group) Dissolve the content of 1 sachet daily in water (3-4 oz.), preferably lukewarm, and stir before consumption. Take on an empty stomach in the morning, before bed, or as directed by a healthcare professional. Digestion GB 180 ct. (Pure Encapsulations) Take 1 capsule with meals OTC NUTRITIONAL SUPPLEMENT lysine Magnesium Glycinate 120 mg (Pure Encapsulations) Take 2 capsules in the evening and 2 in the daytime O.N.E. [place] (Pure Encapsulations) Take 2 capsules by mouth daily with food. Vitamin D3 5000 IUs (Pure Encapsulations) Take 1 capsule by mouth daily with food. No current facility-administered medications on file prior to visit. Primary ICD-10 Diagnosis Addressed: Bloating [R14.0] Provider Nutrition Notes:Nutrition only today Status of Chief Concerns GI sx: bloating, pain under ribcage, N/V, poor appetite, low pancreatic elastase identified via GI Effects -> improved/resolved as of 01/04/23 Nutrition Assessment (updated 01/03/23) Current Symptom Review: Seeing Susana Patterson GRAIN HANDLER in March but wanted to check in with RD Digestive symptoms improved after removing protein powder and adding fermented foods Food and Nutrition History (update): She removed the protein powder and switched to a collagen protein powder from mustard seed She looked up fermented vegetables and has been making her own almond yogurt : kombucha, saurkraut Cut down on psyllium husk to a tsp a day Current Adverse Reactions to Foods: Yes, see prior RD notes Cheetos- diarrhea Diet Recall: Yes, themes reviewed Green smoothie for breakfast [place] milk + conor seeds 1/3 cup kombucha Vegan yogurt S[place]kraut daily Anthropometrics There were no vitals taken for this visit. Last Height: Last 1 Encounter Ht Readings: Date: Ht: 11/29/2019 162.6 cm (5' 4 ) Last Weight: Last Wt 11/29/19 : 53.9 kg (118 lb 14.4 oz) 08/29/19 : 54.6 kg (120 lb 4.8 oz) 04/30/19 : 54.1 kg (119 lb 4.8 oz) Wt: 53.9 kg (118 lb 14.4 oz) BMI: 20.41 kg/(m2) Learning Needs Assessment: Barriers to Learning: Ready to Learn (no barriers noted) Assessed motivation to learn: moderate Biochemical and Laboratory Data Conventional/Advanced Testing None new, see prior GIFX Latest Reference Range AND Units 11/18/22 11:30 ELASTASE-1 CONCENTRATION >=200 ug/g 328 ELASTASE INTERPRETATION Normal Normal Laboratory Values Addressed: Relevant Items in Bold Nutrition Prescription Energy: RMR can't be calculated - Weight unrecorded in last 120 days. Protein: 1.0g/kg Nutrients of Concern: Fiber Nutrition Diagnosis: Altered GI Difficulty related to low pancreatic elastase and dysbiosis as evidenced by GI Effects labs. Status: Resolved - see recent elastase. Nutrition Intervention (New and Reinforcement): Current Nutrition Goal(s): facilitate beneficial microbiome balance and diversity Food Plan: Custom Now that you are feeling better, lets continue a whole foods based diet with daily intake of pre and probiotic rich foods for optimal gut health Prebiotics AND Probiotics The gut microflora is responsible for three major tasks: colonization and resistance to pathogens, modulation of gastrointestinal and systemic immune responses, and nutritional support. Probiotics and prebiotics provide mutually beneficial effects in your body such as regulating immune function, providing metabolic pathway nutrients (glycemic control, cholesterol, and amino acids), supporting mucosal barrier, enhancing nutrient utilization, preventing neoplastic changes, regulating bowel motility, regulating appetite, regulating inflammation, and preventing infections. What are Probiotics? Probiotics are live bacteria that are known to have many health benefits including improved (more content not included)... [facility] 12-31-2022 Note HNO ID: [id number] Author: Swati Umana LISW Service: ? Author Type: Whitewasher Type: Progress Notes Filed: 12/31/2022 8:41 AM Note Text: Virtual Visit I have communicated my name and active licensure. The patient's identity and physical location were verified at the time of this visit. The patient has been informed of the risks and benefits of -- and alternatives to -- treatment through a remote evaluation and consents to proceed with the evaluation remotely. DATE OF SERVICE: 12/31/2022 Duration: 60 min Start 7:30 am End 8:30 am SUBJECTIVE: Pt presented today with dx malignant myeloma. Pt had it removed and checking for clear margins. Pt also visited her granddaughter. Diagnosis: Adjustment disorder with mixed anxiety and depressed mood Mental Status: Mood: engaged Affect: appropriate Thoughts/Associations:goal directed Suicidal/Homicidal Ideation: None expressed or evidenced PROGRESS TO DATE: Pt was able to reach a deep level of relaxation and to access somatic experiencing and memories, which appear to have significant impact on stress and anxiety. Pt began to work through these emotional triggers through conflict resolution and expression of feelings. Pt seemed to gain increased insight into how long repressed emotions seem to be impacting pain and unwanted behaviors. Pt was able to be aware and accept the situation which reduced her stress level. GENERAL COMPLIANCE WITH ONGOING TREATMENT PLAN: PT reports using the mind/body tools regularly since last session. Reports exploring issues that came up last session. INTERVENTION(S) Talk psychotherapy, [place], CBT interventions, supportive interactions, interpretation of unconscious motivation, ego strengthening, Clarification of behavioral patterns, discussion of alternatives, identification of emotions, processing of reactions, validation, communication exercises and conflict exploration DAILY PRACTICE: Movement and excercise Breathe Mindfulness Meditation at least 2X per day Journaling daily Positive affirmations PAIN SCALE: FOLLOW UP: 4 week. ADDITIONAL NOTES: Pt to continue to explore issues that topher from today's session. PLAN: Continue to explore issues pertaining to processing her dx and directives. CELSO Santiago LISW-S, [facility] Psychotherapist [place] [facility] Medicine [facility] 12-03-2022 Note HNO ID: [id number] Author: Swati Umana LISW Service: ? Author Type: Whitewasher Type: Progress Notes Filed: 12/03/2022 2:01 PM Note Text: Virtual Visit I have communicated my name and active licensure. The patient's identity and physical location were verified at the time of this visit. The patient has been informed of the risks and benefits of -- and alternatives to -- treatment through a remote evaluation and consents to proceed with the evaluation remotely. DATE OF SERVICE: 12/03/2022 Duration: 60 min Start 1:00 pm End 2:00 pm SUBJECTIVE: Pt presented today with drinking water helps her with her mood. Diagnosis: Adjustment disorder with mixed anxiety and depressed mood Mental Status: Mood: euthymic Affect: appropriate Thoughts/Associations:goal directed Suicidal/Homicidal Ideation: None expressed or evidenced PROGRESS TO DATE: Pt was able to process progress and her ability to set boundaries as well as insights as to emotional response, which appear to have significant impact on her feelings of rejection. Pt began to work through these emotional triggers through conflict resolution and expression of feelings. Pt seemed to gain increased insight into how long repressed emotions seem to be impacting pain and unwanted behaviors. Pt will continue to use her boundaries and notice emotional triggers as she addresses her inner child. GENERAL COMPLIANCE WITH ONGOING TREATMENT PLAN: PT reports using the mind/body tools regularly since last session. Reports exploring issues that came up last session. INTERVENTION(S) Talk psychotherapy, [place], CBT interventions, supportive interactions, interpretation of unconscious motivation, ego strengthening, Clarification of behavioral patterns, discussion of alternatives, identification of emotions, processing of reactions, validation, identification and setting of healthy boundaries, communication exercises and conflict exploration DAILY PRACTICE: Movement and excercise Breathe Mindfulness Meditation at least 2X per day Journaling daily Positive affirmations PAIN SCALE: FOLLOW UP: 4 week. ADDITIONAL NOTES: Pt to continue to explore issues that topher from today's session. PLAN: Continue to explore issues pertaining to boundaries and self care. CELSO Santiago, JOVAN, [facility] Holistic Psychotherapist [facility] Functional Medicine [facility] 11-12-2022 Note HNO ID: [id number] Author: Flavia Gonzalez RD Service: ? Author Type: Registered Dietitian Type: Progress Notes Filed: 11/12/2022 11:18 AM Note Text: [facility] Nutrition Therapy: Initial Assessment (Individual) VIRTUALVISITPN I have communicated my name and active licensure. The patient's identity and physical location were verified at the time of this visit. Either the patient or their legal statement services representative has been informed of the risks and benefits of -- and alternatives to -- treatment through a remote evaluation and consents to proceed with the evaluation remotely. Patient is located in the [facility] at the time of the virtual visit. Patient Name: Cody Meier Past Medical History: PAST MEDICAL HISTORY Diagnosis Date Gluten intolerance NEGATIVE MEDICAL HISTORY Other voice and resonance disorders due to multiple allergies Uterine prolapse Allergies: Epinephrine Current Medications/Supplements Current Outpatient Medications on File Prior to Visit Medication Sig O.N.E. Multivitamin (Pure Encapsulations) 1 capsule daily, with a meal, 60 ct Target GB-X ([employer]) Dissolve the content of 1 sachet daily in water (3-4 oz.), preferably lukewarm, and stir before consumption. Take on an empty stomach in the morning, before bed, or as directed by a healthcare professional. Digestion GB 180 ct. (Pure Encapsulations) Take 1 capsule with meals OTC NUTRITIONAL SUPPLEMENT lysine Magnesium Glycinate 120 mg (Pure Encapsulations) Take 2 capsules in the evening and 2 in the daytime O.N.E. [place] (Pure Encapsulations) Take 2 capsules by mouth daily with food. Vitamin D3 5000 IUs (Pure Encapsulations) Take 1 capsule by mouth daily with food. No current facility-administered medications on file prior to visit. Primary ICD-10 Diagnosis Addressed: Bloating [R14.0] Provider Nutrition Notes:Nutrition only today Chief Concerns: 1. GI sx: bloating, pain under ribcage, N/V, poor appetite, low pancreatic elastase identified via GI Effects Nutrition Assessment (11/12/22) Digestive symptoms: bloating, pain under ribcage, N/V (vida with broccoli/cauliflower), poor appetite Food and Nutrition History (special diet(s) or nutritional program): Current diet: somewhat vegan (strict vegan since June 2004; added in some more animal proteins when starting FM 2018), low gluten, low dairy Spent the past 4 years working on mold [employer], which helped reduce levels and sx; has completed protocol; stool incontinence resolved BMs are normal However, now dealing with gas and bloating Wonders if she's getting too much fiber (which was needed to help with sx from mold protocol meds/supplements): Daily has psyllium husk in morning smoothie (1.5-2 tbsp + 8-12 oz fluids) and 1.5 tbsp conor seeds in almond milk in afternoon Foods high in fat have always caused abdominal pain Adverse Reactions to Foods: Yes, white potatoes (bowel incontinence) , pineapple (digestive sx) Diet Recall: Yes 24 Hour Recall Breakfast: -- steamed kale, arugula, carrots, almond milk or almond yogurt, psyllium husk, hemp protein powder - 2 tbsp (7.5 g protein); -- Currently, may skip breakfast due to poor appetite (eat first meal at 2 p.m.) Lunch: Soups (rice, chicken, celery, onions, garlic, carrots); dried beans Dinner: -- conor seeds + almond milk; -- red potato + olive oil + onion + egg; -- cornbread pancake + onion; -- red lentil and sweet potato stew; -- vegetarian chili Snacks: Saltine crackers (possibly causing stomach pain by next day?); ice cream (with dairy) Beverages: water, almond milk Proteins: hemp protein powder, beans Supplements: evening primrose oil, Calcium citrate, MVI, glysine/lysine, target GB-x probiotic, Mg glycinate, [place]-3, quercetin, Vitamin D3, GB digestion Biochemical and Laboratory Data Conventional/Advanced Testing GI Effects Stool Profile Results Date of test: 10/19/2022 Section Score Significant Results Maldigestion 9 Pancreatic elastase (L); products of protein breakdown (Mod H) Inflammation 0 Dysbiosis 3 PP Bacteria (Mod H) Metabolic Imbalance 0 SCFA% (Mod H) Infection 2 PP Bacteria (Mod H) Laboratory Values Addressed: Relevant Items in Bold Anthropometrics There were no vitals taken for this visit. Last Height: Last 1 Encounter Ht Readings: Date: Ht: 11/29/2019 162.6 cm (5' 4 ) Last Weight: Last Wt 11/29/19 : 53.9 kg (118 lb 14.4 oz) 08/29/19 : 54.6 kg (120 lb 4.8 oz) 04/30/19 : 54.1 kg (119 lb 4.8 oz) Wt: 53.9 kg (118 lb 14.4 oz) BMI: 20.41 kg/(m2) Nutrition Prescription: Energy: RMR can't be calculated - Weight unrecorded in last 120 days. Protein: 1.0 g/kg Nutrients of Concern: protein Nutrition Diagnosis: Altered GI Difficulty related to low pancreatic elastase and dysbiosis as evidenced by GI Effects labs. Status: New Learning Needs Assessment: Ba (more content not included)... [facility] 10-22-2022 Note HNO ID: [id number] Author: Swati Umana LISW Service: ? Author Type: Whitewasher Type: Progress Notes Filed: 10/22/2022 1:57 PM Note Text: Virtual Visit I have communicated my name and active licensure. The patient's identity and physical location were verified at the time of this visit. The patient has been informed of the risks and benefits of -- and alternatives to -- treatment through a remote evaluation and consents to proceed with the evaluation remotely. DATE OF SERVICE: 10/22/2022 Duration: 60 min Start 1:00 pm End 2:00 pm SUBJECTIVE: Pt presented today with life winding down, past time to do things, friends getting sick, nothing interesting, everything is a disappointment, wanting to do something that gives meaning to her life. Pt stopped volunteering for things, feeling better making financial contribution, which caused feelings of rejection. Diagnosis: Adjustment disorder with mixed anxiety and depressed mood Mental Status: Mood: euthymic Affect: appropriate Thoughts/Associations:goal directed Suicidal/Homicidal Ideation: None expressed or evidenced PROGRESS TO DATE: Pt was able to reach a deep level of relaxation and to access somatic experiencing and memories, which appear to have significant impact on feeling unworthy and rejected. Pt began to work through these emotionally painful triggers through conflict resolution and expression of feelings. Pt seemed to gain increased insight into how long repressed emotions seem to be impacting pain and unwanted behaviors. Pt was taught techniques for facilitating a state of relaxation and reducing stress level. Pt recalled being a young little girl and feeling unworthy and rejected by her mother. Pt recognized her need for self compassion and acceptance. GENERAL COMPLIANCE WITH ONGOING TREATMENT PLAN: PT reports using the mind/body tools regularly since last session. Reports exploring issues that came up last session. INTERVENTION(S) Talk psychotherapy, supportive interactions, interpretation of unconscious motivation, ego strengthening, Clarification of behavioral patterns, discussion of alternatives, identification of emotions, processing of reactions, validation DAILY PRACTICE: Movement and excercise Breathe Mindfulness Meditation at least 2X per day Journaling daily Positive affirmations PAIN SCALE: FOLLOW UP: 4 week. ADDITIONAL NOTES: Pt to continue to explore issues that topher from today's session. PLAN: Continue to explore issues pertaining to inner child work through self compassion. CELSO Santiago, JOVAN, [facility] 09-28-2022 Note HNO ID: [id number] Author: Luna Bedolla MD Service: ? Author Type: Physician Type: Progress Notes Filed: 09/28/2022 9:04 AM Note Text: [facility] Functional Medicine Follow-up Visit This Team Access Model visit is a virtual encounter. It required patient-provider interaction for the medical decision making as documented below. I have communicated my name and active licensure. The patient's identity and physical location were verified at the time of this visit. Either the patient or their legal statement services representative has been informed of the risks and benefits of -- and alternatives to -- treatment through a remote evaluation and consents to proceed with the evaluation remotely. Patient: Cody Meier There is no height or weight on file to calculate BMI. RMR can't be calculated - Weight unrecorded in last 120 days. ALLERGIES Allergen Reactions Epinephrine Mental Status Change passed out Current Outpatient Medications on File Prior to Visit Medication Sig Activated Charcoal ([employer]) 1 capsules, 2 times daily NAC 600mg (Pure Encapsulations) - liver support (helps make glutathione) 2 capsules, in divided doses, between meals O.N.E. Multivitamin (Pure Encapsulations) 1 capsule daily, with a meal, 60 ct Target GB-X ([employer]) Dissolve the content of 1 sachet daily in water (3-4 oz.), preferably lukewarm, and stir before consumption. Take on an empty stomach in the morning, before bed, or as directed by a healthcare professional. Digestion GB 180 ct. (Pure Encapsulations) Take 1 capsule with meals OTC NUTRITIONAL SUPPLEMENT lysine Magnesium Glycinate 120 mg (Pure Encapsulations) Take 2 capsules in the evening and 2 in the daytime O.N.E. [place] (Pure Encapsulations) Take 2 capsules by mouth daily with food. Vitamin D3 5000 IUs (Pure Encapsulations) Take 1 capsule by mouth daily with food. No current facility-administered medications on file prior to visit. PAST MEDICAL HISTORY Diagnosis Date Gluten intolerance NEGATIVE MEDICAL HISTORY Other voice and resonance disorders due to multiple allergies Uterine prolapse PAST SURGICAL HISTORY Procedure Laterality Date ENDOSCOPY, ESOPHAGUS for hoarseness-negative LIGATE FALLOPIAN TUBE Tubal ligation PAST SURGICAL HISTORY OF left breast biopsy Social History Tobacco Use Smoking status: Former Types: Cigarettes Quit date: 04/26/1977 Years since quittin.4 Smokeless tobacco: Never Tobacco comments: Pt smoked 1-2 packs daily on AND off x 10 years. Substance Use Topics Alcohol use: No Alcohol/week: 2.5 standard drinks of alcohol Types: 1 Glasses of Wine (5oz) per week Drug use: No Functional Medicine Timeline Patient Entered Questionnaires PROMIS Global Health Summary Physical Health Summary Score Components 09/24/2022 07/04/2022 04/09/2022 Physical health Very good Very good Very good Everyday physical activity MOSTLY (!) MOSTLY (!) MOSTLY (!) Fatigue Mild Mild Mild Pain 1 1 0 - No Pain Social activities and roles Very good Good Very good Physical Health T-Score 50.8 (Very Good) 50.8 (Very Good) 54.1 (Very Good) Physical Health Percentile 53 53 66 Mental Health Summary Score Components 09/24/2022 07/04/2022 04/09/2022 Quality of life Very good Good Very good Mental health (mood, thinking) Very good GOOD (!) Very good Social satisfaction Very good Good Very good Emotional problems (anxious,depressed) Rarely SOMETIMES (!) Never Mental Health T-Score 53.3 (Very Good) 43.5 (Good) 56 (Excellent) Mental Health Percentile 63 26 73 Other 09/24/2022 07/04/2022 04/09/2022 In general, health is: Very good Good Very good PROMIS CAT Physical Function 01/16/2022 04/08/2022 09/24/2022 PROMIS Physical Function T-Score 47 (within normal limits) 43 (mild dysfunction) 44 (mild dysfunction) Anxiety Screening(GYPSY-7) Sleep Apnea Probability Snores loudly: No Tired, fatigued or sleepy in daytime: No Stops breathing or choking/gasping during sleep: No High blood pressure: No Sleep Apnea Probability Score 01/16/2022 Sleep Apnea Screen V2 20 (Sleep study not recommended) Depression Screening (PHQ-9) PHQ-9 04/28/2019 01/26/2020 Score 2 0 PHQ-9 Self Harm 04/28/2019 01/26/2020 Question 9 Not at all Not at all PHQ-9 Levels: PHQ-9 Self-Harm (Item 9) response options: 0-4 Minimal depression 0 Not at all 5-9 Mild depression 1 Several days 10-14 Moderate depression 2 More than half the days 15-19 Moderately severe depression 3 Nearly every day 20-27 Severe depression September 28, 2022 Luna Bedolla MD Subjective: Virtual 77 yr old female here for her follow up visit from june 2022. Pt has a hx of mold exposure,and has been using binders, charcoal and support with NAC. She send her last test in August with RTL in August/ Taking gi detox one per day until they are gone. Also, uses wheat grass in her smoothie. Gut issues are all good, s (more content not included)... [facility] 09-28-2022 History of Presen t illness Narrative [facility] Functional Medicine Follow-up Visit This Team Access Model visit is a virtual encounter. It required patient-provider interaction for the medical decision making as documented below. I have communicated my name and active licensure. The patient's identity and physical location were verified at the time of this visit. Either the patient or their legal statement services representative has been informed of the risks and benefits of -- and alternatives to -- treatment through a remote evaluation and consents to proceed with the evaluation remotely. Patient: Cody Meier There is no height or weight on file to calculate BMI. RMR can't be calculated - Weight unrecorded in last 120 days. ALLERGIES Allergen Reactions Epinephrine Mental Status Change passed out Current Outpatient Medications on File Prior to Visit Medication Sig Activated Charcoal ([employer]) 1 capsules, 2 times daily NAC 600mg (Pure Encapsulations) - liver support (helps make glutathione) 2 capsules, in divided doses, between meals O.N.E. Multivitamin (Pure Encapsulations) 1 capsule daily, with a meal, 60 ct Target GB-X ([employer]) Dissolve the content of 1 sachet daily in water (3-4 oz.), preferably lukewarm, and stir before consumption. Take on an empty stomach in the morning, before bed, or as directed by a healthcare professional. Digestion GB 180 ct. (Pure Encapsulations) Take 1 capsule with meals OTC NUTRITIONAL SUPPLEMENT lysine Magnesium Glycinate 120 mg (Pure Encapsulations) Take 2 capsules in the evening and 2 in the daytime O.N.E. [place] (Pure Encapsulations) Take 2 capsules by mouth daily with food. Vitamin D3 5000 IUs (Pure Encapsulations) Take 1 capsule by mouth daily with food. No current facility-administered medications on file prior to visit. PAST MEDICAL HISTORY Diagnosis Date Gluten intolerance NEGATIVE MEDICAL HISTORY Other voice and resonance disorders due to multiple allergies Uterine prolapse PAST SURGICAL HISTORY Procedure Laterality Date ENDOSCOPY, ESOPHAGUS for hoarseness-negative LIGATE FALLOPIAN TUBE Tubal ligation PAST SURGICAL HISTORY OF left breast biopsy Social History Tobacco Use Smoking status: Former Types: Cigarettes Quit date: 04/26/1977 Years since quittin.4 Smokeless tobacco: Never Tobacco comments: Pt smoked 1-2 packs daily on & off x 10 years. Substance Use Topics Alcohol use: No Alcohol/week: 2.5 standard drinks of alcohol Types: 1 Glasses of Wine (5oz) per week Drug use: No Functional Medicine Timeline Patient Entered Questionnaires PROMIS Global Health Summary Physical Health Summary Score Components 09/24/2022 07/04/2022 04/09/2022 Physical health Very good Very good Very good Everyday physical activity MOSTLY (!) MOSTLY (!) MOSTLY (!) Fatigue Mild Mild Mild Pain 1 1 0 - No Pain Social activities and roles Very good Good Very good Physical Health T-Score 50.8 (Very Good) 50.8 (Very Good) 54.1 (Very Good) Physical Health Percentile 53 53 66 Mental Health Summary Score Components 09/24/2022 07/04/2022 04/09/2022 Quality of life Very good Good Very good Mental health (mood, thinking) Very good GOOD (!) Very good Social satisfaction Very good Good Very good Emotional problems (anxious,depressed) Rarely SOMETIMES (!) Never Mental Health T-Score 53.3 (Very Good) 43.5 (Good) 56 (Excellent) Mental Health Percentile 63 26 73 Other 09/24/2022 07/04/2022 04/09/2022 In general, health is: Very good Good Very good PROMIS CAT Physical Function 01/16/2022 04/08/2022 09/24/2022 PROMIS Physical Function T-Score 47 (within normal limits) 43 (mild dysfunction) 44 (mild dysfunction) Anxiety Screening(GYPSY-7) Sleep Apnea Probability Snores loudly: No Tired, fatigued or sleepy in daytime: No Stops breathing or choking/gasping during sleep: No High blood pressure: No Sleep Apnea Probability Score 01/16/2022 Sleep Apnea Screen V2 20 (Sleep study not recommended) Depression Screening (PHQ-9) PHQ-9 04/28/2019 01/26/2020 Score 2 0 PHQ-9 Self Harm 04/28/2019 01/26/2020 Question 9 Not at all Not at all PHQ-9 Levels: PHQ-9 Self-Harm (Item 9) response options: 0-4 Minimal depression 0 Not at all 5-9 Mild depression 1 Several days 10-14 Moderate depression 2 More than half the days 15-19 Moderately severe depression 3 Nearly every day 20-27 Severe depression September 28, 2022 Luna Bedolla MD Subjective: Virtual 77 yr old female here for her follow up visit from june 2022. Pt has a hx of mold exposure,and has been using binders, charcoal and support with NAC. She send her last test in August with RTL in August/ Taking gi detox one per day until they are gone. Also, uses wheat grass in her smoothie. Gut issues are all good, specific food related. Depression improved, using food to help this. July 08, 2022 Luna Bedolla MD Subjective: Virtual 77 yr old female, here for follow up. Has issues with mold exposure. Having NAC and charcoal for mold. Craving carbs and has gained weight. Wt # 126 now.5'3 Walking 3.5 miles per day, doing some weights. Some constipation, incomplete evacuation. April 14, 2022 Luna Bedolla MD Subjective: Virtual Has been cooking, over carbing. She was feeling great about this. Not being so obsessed with her self care. Having issues with mold. Having cheese, no problems, except her stomach is uneasy. Has urethral carbuncle, used estrogen cream. February 10, 2022 Luna Bedolla MD Subjective: Virtual Pt wanting to review her present plan, had a lot of stress with recent travels. Mold is her main concern November 05, 2021 Luna Bedolla MD Subjective: Virtual 76 yr old with mold, extremity neuropathy, loose stools. 10/16/21-Just got covid, throat issues, phlegm , feeling like choking. She was very tired. Headaches and body aches. Her gut is good. Stopped the detox in July and could eat all kinds of food, gained 5 lbs. Walking daily. No SOB. July 20, 2021 Luna Bedolla MD Subjective: Virtual 76 yr old with mold, extremity neuropathy, loose stools. Stopped the s boulardii 6 weeks ago, tried the gi detox one per day based on tolerance, ok until July 03, so stopped all. Feeling overwhelmed responsibilities to care for her living space. April 16, 2021 Luna Bedolla MD ( [place]) Subjective: Virtual 75 yr old female with hx lower extremity neuropathy, loose stools, + mold and mycotoxins. Pt was last seen January 2021. Things are under control, spelt organic pretzels- if she has too many daily then having issues. Stress is good, staying at home, sewing, one volunteer day. Spending time with food prep. January 16, 2021 Luna Bedolla MD Subjective: Virtual The diarrhea situation was ? Related to a lot of food fresh at the same time. Then it settled down. Sauerkraut caused issues. Going out it can be hard. Exercise now more. 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 October 15, 2020 Luna Bedolla MD Subjective: Virtual Some ways doing well and then relapse - some diarrhea for weeks. Started to eat fresh tomatoes a lot. All of a sudden- she gets happy in September ( has SAD ) uses a sun box daily. Her friend started her in a book group that was wonder. Review of Systems: Gi systems improved Objective: Virtual Physical Exam: Virtual CURRENT Functional Medicine Assessment/ PLAN Nutritional Assessment Low fat , GF Digestive Function Bloating, Loose stools--> fecal incontinence-->gone ( slight due to a lot of tomatoes/prepared foods/ gluten) Gurgling , gas SIBO negative Madi GI Effects High fecal fats High beta glucuronidase Dysbiosis 01/07 Inflammation/Immune Function Dry burning eyes, and throat- gone Throat clearing- CBC reviewed 05/2021 improved Energy Production/Function: Depression- lifted ( target gbx is great ) GONE Some confusion noted Detoxification Function Mold exposure- 15 YRS AGO, 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 ) ( 4419.12 previous GPL 01/2019 / no provoking ) GPL Sep 2020 Gliotoxin GONE Ochratoxin 70.18 Sterigm o mycophenolic acid 47.16 fusarium-Enniatin 2.02 Lesia 0 Citrinin 166.57 GPL Mar 24, 2021 ( GI Detox, NAC, s boulardii, glutathione ) Ochratoxin A - 14.37 All others 0 RTL 03/2022 Ochratoxin A 4.356 Tricothecenes 0.16 Gliotoxin equivocal Zear 0.812 RTL 08/2022 Ochratoxin A 0.335 not present Tricothecenes 0.12 present very lo Gliotoxin 0.27 not present Zear 0.257 not present 01/2021 Scr 0.60 GFR 104 1557-8912 mold in her home, cleaned up Chemicals + Sweating now Hormonal Function: Menopause Prolapsed uterus-Pessary Structural Function Mold Exposure: First, finish the activated charcoal, then the GI Detox, if tolerated take 2, ( some people get constipated for this ) only one NAC a day. Until all are gone. Constipation/ Bowel issues: Pelvic floor physical therapy, squatty potty, relaxation of pelvic floor muscles. Assessment Assessment: Z77.120 Mold exposure (primary encounter diagnosis) Plan and Lifestyle Prescription Plan/Instructions/Resources: (For ongoing medical care please follow up with your primary care provider or specialist while working with functional medicine .) Tests ordered : GI Effects ordered Potential future labs: Any Madi labs ordered take about 6 -8 weeks to return. Do them as soon as possible so we have the results before your next appointment. You can access them on the [facility] website,set up a patient portal and it can be beneficial if you review them prior to your next visit. [email or web address]. Read about NutrEval/GI Effects if these were ordered. Please log into the link if you have questions regarding how to perform any of the Madi Testing Kits ( such as GI Effects, Nutreval, Hydrogen Breath Test ). Recommendations: Mold exposure Finish and stop GI Detox. You can periodically take NAC and or glutathione. Continue with Chrisa monthly. 2. Core supplements: Vitamin d Magnesium Fish oil MVI Digestive enzymes Rotate probiotics Quercetin Future repeat the Madi GI Effects stool test to determine if your digestive supports are still needed. Medications/Supplements Recommended: No orders of the defined types were placed in this encounter. Current Outpatient Medications Medication Sig Activated Charcoal ([employer]) 1 capsules, 2 times daily NAC 600mg (Pure Encapsulations) - liver support (helps make glutathione) 2 capsules, in divided doses, between meals O.N.E. Multivitamin (Pure Encapsulations) 1 capsule daily, with a meal, 60 ct Target GB-X ([employer]) Dissolve the content of 1 sachet daily in water (3-4 oz.), preferably lukewarm, and stir before consumption. Take on an empty stomach in the morning, before bed, or as directed by a healthcare professional. Digestion GB 180 ct. (Pure Encapsulations) Take 1 capsule with meals OTC NUTRITIONAL SUPPLEMENT lysine Magnesium Glycinate 120 mg (Pure Encapsulations) Take 2 capsules in the evening and 2 in the daytime O.N.E. [place] (Pure Encapsulations) Take 2 capsules by mouth daily with food. Vitamin D3 5000 IUs (Pure Encapsulations) Take 1 capsule by mouth daily with food. No current facility-administered medications for this visit. I recommend the supplements from the [facility] [employer] Online Store as we have thoroughly evaluated the research and use only highest quality supplements. Get started by following four easy steps: Visit the following webpage: [email or web address] Create an account: Enter your first name, last name, email address which will be your username Create password Select a referring physician from the dropdown box. If they are not listed, select other If you are a new patient, enter the following provider code: Functional Order recommended supplementation Enter the supplement name in the search box Add all supplements to your cart and proceed to checkout. Orders of $100 or more qualify for free shipping. *Please allow 5-7 business days for delivery. For issues with your MRN please call [phone] Provider Code: Functional (not case sensitive) Future Plans: Follow up: Please schedule a follow up visit with the following Caregivers: Provider: follow up in 10-12 weeks with the [place] [facility], Consult to Susana Patterson NP Please call or go to [facility] to schedule a follow up visit. 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 Exercise Prescription: Numerous studies confirm the benefits of regular moderate aerobic exercise (walking, swimming, elliptical machine, cycling, etc.) for 30 min 5 days per week (150 min goal). Stress Management: 1) Please look into this Heart Rate Variability BioFeedback Tool (www.heartmath.org). 2) A regular, daily meditation practice of at least 15-20 minutes will change your brain--as well as your genes! Behavioral Health Therapist: If I recommended counseling or individual therapy, please schedule an individual appointment with our Functional Medicine Behavioral Health Therapist after your visit today. The Behavioral Health Therapist helps patients identify and understand feelings and behaviors, experience the process of making positive change, and gain healthy coping skills. Health Coaching: Please consider scheduling with our [facility] Functional Medicine health coaches for a phone or virtual visit for accountability, goal setting and help with behavior change release manager the next 6-8 weeks to be successful with your goals. [phone]. Smart phone apps to begin a meditative practice: Headspace (free for first 10 days) Insight Meditation Timer- (Free)-Great all-around norma to use for guided meditations of many different types and lengths or just to use as a tool to time and track your meditation practice. This is my absolute favorite! Calm- (Free) Walking Meditations-($1.99)- Get your walk AND meditation done together. A good way to start out for individuals who feel they just can't sit still to begin a meditative practice. During the next 6-8 weeks you'll be working on your diet plan discussed with our groundwater consultant, allowing for gentle detoxification and decreasing inflammation - while we are gathering your lab results and combining those with your complete history to formulate a very personalized treatment plan. LAB results: Due to the complexity of the testing performed, we are not able to review labs via MyChart or over the phone, but please know, if any of your labs are critical we will contact you. Otherwise, we will review all your labs at your next visit. Make sure to schedule with the groundwater consultant (this will not happen automatically) as you did with your first visit so that she can review nutritional aspects of your treatment plan. Madi tests are typically not covered by conventional insurance companies, Medicare does cover Nutreval and GI Effects. Madi Billing Questions: [email or web address] Please obtain blood draws for the [facility] NutrEval Profile and other test kits ordered by your provider at the [facility] at designated [facility] Labs and times. The designated labs are as follows: ~[facility] [place] : Q2 @ [facility] Tuesday-Tuesday 8am-1 pm and 1:30pm-4:30 pm G-10 Tuesday-Tuesday 8am-5pm. ~[facility] : Labs Tuesday-Tuesday 8am-1pm. ~Or at a local lab where you live: [facility] Luna Bedolla MD Time spend with patient: I spent 30 minutes in the visit with more than 50% of the time spent counseling in regards to above. documented in this encounter [facility] 09-17-2022 Note HNO ID: [id number] Author: Swati Umana LISW Service: ? Author Type: Whitewasher Type: Progress Notes Filed: 09/17/2022 2:44 PM Note Text: Virtual Visit I have communicated my name and active licensure. The patient's identity and physical location were verified at the time of this visit. The patient has been informed of the risks and benefits of -- and alternatives to -- treatment through a remote evaluation and consents to proceed with the evaluation remotely. DATE OF SERVICE: 09/17/2022 Duration: 60 min Start 1:00 pm End 2:00 pm SUBJECTIVE: Pt presented today with feeling negative thinking and negative voice to self compassion. Pt went to her granddaughter's wedding and all went well. Dynamics with ex daughter in law during her stay. Concerned about aging. Diagnosis: Adjustment disorder with mixed anxiety and depressed mood. Mental Status: Mood: euthymic Affect: appropriate Thoughts/Associations:goal directed Suicidal/Homicidal Ideation: None expressed or evidenced PROGRESS TO DATE: Pt was able to discuss and express her feelings and thoughts, which appear to have significant impact on her feelings of confidence in her communication. Pt began to work through these emotional triggers through conflict resolution and expression of feelings. Pt seemed to gain increased insight into dynamics with family. Pt was taught techniques for facilitating a state of relaxation and reducing stress level. GENERAL COMPLIANCE WITH ONGOING TREATMENT PLAN: PT reports using the mind/body tools regularly since last session. Reports exploring issues that came up last session. INTERVENTION(S) Talk psychotherapy, [place], CBT interventions, Conflict resolution w Breath therapy, supportive interactions, interpretation of unconscious motivation, ego strengthening, Clarification of behavioral patterns, discussion of alternatives, identification of emotions, processing of reactions, validation, identification and setting of healthy boundaries, communication exercises and conflict exploration DAILY PRACTICE: Movement and excercise Breathe Mindfulness Meditation at least 2X per day Journaling daily Positive affirmations PAIN SCALE: FOLLOW UP: 4 week. ADDITIONAL NOTES: Pt to continue to explore issues that topher from today's session. PLAN: Continue to explore issues pertaining to acceptance of her current life challenges. Pt will begin to use positive statements, not negative statements. CELSO Santiago, JOVAN, [facility] Holistic Psychotherapist [facility] 08-20-2022 Note HNO ID: [id number] Author: DALTON Santiago Service: ? Author Type: Whitewasher Type: Progress Notes Filed: 08/20/2022 8:46 AM Note Text: Virtual Visit I have communicated my name and active licensure. The patient's identity and physical location were verified at the time of this visit. The patient has been informed of the risks and benefits of -- and alternatives to -- treatment through a remote evaluation and consents to proceed with the evaluation remotely. DATE OF SERVICE: 08/20/2022 Duration: 60 min Start 7:30 am End 8:30 am SUBJECTIVE: Pt presented today with things happening but able to manage her stress through self talk. Pt has some busy days coming up, granddaughter getting in a week. Pt is staying calm and going with the flow. Diagnosis:Adjustment disorder with mixed anxiety and depressed mood Mental Status: Mood: euthymic Affect: appropriate Thoughts/Associations:goal directed Suicidal/Homicidal Ideation: None expressed or evidenced PROGRESS TO DATE: Pt was able to reach a deep level of relaxation and to access somatic awareness and memories, which appear to have significant impact on her fear of physical response to food and criticism. Pt began to work through these through conflict resolution and expression of feelings. Pt seemed to gain increased insight into how long repressed emotions seem to be impacting pain and unwanted behaviors. Pt was taught techniques for facilitating a state of relaxation and reducing stress level. Social events are difficult for pt and it is uncomfortable to be hypervigilant on food intake and responding to socialization, fear of being judged and being the odd one. Pt began to recognize she may not need to put so much effort in to her social awareness, but rather allow herself to be herself in heart coherence, gratitude and compassion, affirmations and validation. GENERAL COMPLIANCE WITH ONGOING TREATMENT PLAN: PT reports using the mind/body tools regularly since last session. Reports exploring issues that came up last session. INTERVENTION(S) Talk psychotherapy, [place], CBT interventions, Conflict resolution w Breath therapy, supportive interactions, interpretation of unconscious motivation, ego strengthening, Clarification of behavioral patterns, discussion of alternatives, identification of emotions, processing of reactions, validation, identification and setting of healthy boundaries, and conflict exploration DAILY PRACTICE: Movement and excercise Breathe Mindfulness Meditation at least 2X per day Journaling daily Positive affirmations PAIN SCALE: FOLLOW UP: 4 week. ADDITIONAL NOTES: Pt to continue to explore issues that topher from today's session. PLAN: Continue to explore issues pertaining to heart coherence in social situations. CELSO Santiago, J[place], [facility] Holistic Psychotherapist [facility] 07-16-2022 Note HNO ID: [id number] Author: DALTON Santiago Service: ? Author Type: Whitewasher Type: Progress Notes Filed: 07/16/2022 9:33 AM Note Text: Virtual Visit I have communicated my name and active licensure. The patient's identity and physical location were verified at the time of this visit. The patient has been informed of the risks and benefits of -- and alternatives to -- treatment through a remote evaluation and consents to proceed with the evaluation remotely. DATE OF SERVICE: 07/16/2022 Duration: 60 min Start 8:30 am End 9:30 am SUBJECTIVE: Pt presented today with continued detox and has a plan to end detox, feeling better since this weather. Pt is happy when she feels she had a choice. Pt told the story of Yonas at [employer], felt very connected to God through calling and prayer. This event brought her much devan. Mental Status: Mood: euthymic Affect: appropriate Thoughts/Associations:goal directed Suicidal/Homicidal Ideation: None expressed or evidenced PROGRESS TO DATE: Pt was able to discuss life events and stories, which appear to have significant impact on her acceptance of where she was at that time in her life. Pt feels judged if she were to express these to others in her circles. Pt seemed to gain increased insight into how long repressed emotions seem to be impacting pain and unwanted behaviors. Pt has been looking at acceptance and recognizing past behaviors served a purpose in her life. Pt is thinking of writing a book of stories. GENERAL COMPLIANCE WITH ONGOING TREATMENT PLAN: PT reports using the mind/body tools regularly since last session. Reports exploring issues that came up last session. INTERVENTION(S) Talk psychotherapy, CBT interventions, supportive interactions, interpretation of unconscious motivation, ego strengthening, Clarification of behavioral patterns, discussion of alternatives, identification of emotions, processing of reactions, validation and conflict exploration DAILY PRACTICE: Movement and excercise Breathe Mindfulness Meditation at least 2X per day Journaling daily Positive affirmations PAIN SCALE: FOLLOW UP: 4 week. ADDITIONAL NOTES: Pt to continue to explore issues that topher from today's session. PLAN: Continue to explore issues pertaining to connection with mind body and divine source. CELSO Santiago, JOVAN, [facility] Holistic Psychotherapist [facility] 07-08-2022 Note HNO ID: [id number] Author: Luna Bedolla MD Service: ? Author Type: Physician Type: Progress Notes Filed: 07/08/2022 10:02 AM Note Text: [place] Virtual Functional Medicine Follow-up Visit This Team Access Model visit is a virtual encounter. It required patient-provider interaction for the medical decision making as documented below. I have communicated my name and active licensure. The patient's identity and physical location were verified at the time of this visit. Either the patient or their legal statement services representative has been informed of the risks and benefits of -- and alternatives to -- treatment through a remote evaluation and consents to proceed with the evaluation remotely. Patient: Cody Meier There is no height or weight on file to calculate BMI. RMR can't be calculated - Weight unrecorded in last 120 days. ALLERGIES Allergen Reactions Epinephrine Mental Status Change passed out Current Outpatient Medications on File Prior to Visit Medication Sig Activated Charcoal ([employer]) 1 capsules, 2 times daily NAC 600mg (Pure Encapsulations) - liver support (helps make glutathione) 2 capsules, in divided doses, between meals O.N.E. Multivitamin (Pure Encapsulations) 1 capsule daily, with a meal, 60 ct Glutathione ([place]) - Liver support/detox Use 8 pumps daily (1000mg) divided doses through out the day. (2 pumps = 100 mg Glutathione). Work up slowly to the higher dose. Target GB-X (Allergy Research Group) Dissolve the content of 1 sachet daily in water (3-4 oz.), preferably lukewarm, and stir before consumption. Take on an empty stomach in the morning, before bed, or as directed by a healthcare professional. Digestion GB 180 ct. (Pure Encapsulations) Take 1 capsule with meals OTC NUTRITIONAL SUPPLEMENT lysine Magnesium Glycinate 120 mg (Pure Encapsulations) Take 2 capsules in the evening and 2 in the daytime O.N.E. [place] (Pure Encapsulations) Take 2 capsules by mouth daily with food. Vitamin D3 5000 IUs (Pure Encapsulations) Take 1 capsule by mouth daily with food. No current facility-administered medications on file prior to visit. PAST MEDICAL HISTORY Diagnosis Date Gluten intolerance NEGATIVE MEDICAL HISTORY Other voice and resonance disorders due to multiple allergies Uterine prolapse PAST SURGICAL HISTORY Procedure Laterality Date ENDOSCOPY, ESOPHAGUS for hoarseness-negative LIGATE FALLOPIAN TUBE Tubal ligation PAST SURGICAL HISTORY OF left breast biopsy Social History Tobacco Use Smoking status: Former Types: Cigarettes Quit date: 04/26/1977 Years since quittin.2 Smokeless tobacco: Never Tobacco comments: Pt smoked 1-2 packs daily on AND off x 10 years. Substance Use Topics Alcohol use: No Alcohol/week: 2.5 standard drinks Types: 1 Glasses of Wine (5oz) per week Drug use: No Functional Medicine Timeline Patient Entered Questionnaire PROMIS Scale T-Scores -- HIGHER SCORES BETTER PROMIS Global Health - (T-Scores - the mean of general population = 50. Five points is a clinically meaningful difference.) 04/08/2022 04/09/2022 07/04/2022 Physical T-Score 54.1 54.1 50.8 Mental T-Score 56 56 43.5 Depression Screening: PHQ-9 04/28/2019 01/26/2020 Score 2 0 PHQ-9 Self Harm 04/28/2019 01/26/2020 Question 9 Not at all Not at all PHQ-9 Self-Harm (Item 9) response options: 0 Not at all 1 Several days 2 More than half the days 3 Nearly every day PHQ-9 Levels: 0-4 Minimal depression 5-9 Mild depression 10-14 Moderate depression 15-19 Moderately severe depression 20-27 Severe depression July 08, 2022 Luna Bedolla MD Subjective: Virtual 77 yr old female, here for follow up. Has issues with mold exposure. Having NAC and charcoal for mold. Craving carbs and has gained weight. Wt # 126 now.5'3 Walking 3.5 miles per day, doing some weights. Some constipation, incomplete evacuation. April 14, 2022 Luna Bedolla MD Subjective: Virtual Has been cooking, over carbing. She was feeling great about this. Not being so obsessed with her self care. Having issues with mold. Having cheese, no problems, except her stomach is uneasy. Has urethral carbuncle, used estrogen cream. February 10, 2022 Luna Bedolla MD Subjective: Virtual Pt wanting to review her present plan, had a lot of stress with recent travels. Mold is her main concern November 05, 2021 Luna Bedolla MD Subjective: Virtual 76 yr old with mold, extremity neuropathy, loose stools. 10/16/21-Just got covid, throat issues, phlegm , feeling like choking. She was very tired. Headaches and body aches. Her gut is good. Stopped the detox in July and could eat all kinds of food, gained 5 lbs. Walking daily. No SOB. July 20, 2021 Luna Bedolla MD Subjective: Virtual 76 yr old with mold, extremity neuropathy, loose stools. Stopped the s boulardii 6 (more content not included)... [facility] 06-18-2022 Note HNO ID: [id number] Author: DALTON Santiago Service: ? Author Type: Whitewasher Type: Progress Notes Filed: 06/23/2022 12:57 PM Note Text: Virtual Visit I have communicated my name and active licensure. The patient's identity and physical location were verified at the time of this visit. The patient has been informed of the risks and benefits of -- and alternatives to -- treatment through a remote evaluation and consents to proceed with the evaluation remotely. DATE OF SERVICE: 06/18/2022 Duration: 55 min Start 8:35 am End 9:30 am SUBJECTIVE: Pt presented today with prepared for 5K in [place] for [employer] benefit for tomorrow, hoping she feels better emotionally. Dynamic with friendship with Tereza caused her to lose some trust. Mental Status: Mood: engaged Affect: appropriate Thoughts/Associations:goal directed Suicidal/Homicidal Ideation: None expressed or evidenced PROGRESS TO DATE: Pt was able to reach a deep level of relaxation and to access somatic awareness and memories, which appear to have significant impact on feeling angry and distrust. Pt began to work through these emotionally painful triggers through conflict resolution and expression of feelings. Pt seemed to gain increased insight into how long repressed emotions seem to be impacting pain and unwanted behaviors. Pt was taught techniques for facilitating a state of relaxation and reducing stress level. Pt is acknowledging her reactivity and was able to be introspective and able to communicate and express her emotions about her friend. Pt will challenge herself with reaching out to her friend. GENERAL COMPLIANCE WITH ONGOING TREATMENT PLAN: PT reports using the mind/body tools regularly since last session. Reports exploring issues that came up last session. INTERVENTION(S) Talk psychotherapy, CBT interventions, supportive interactions, interpretation of unconscious motivation, ego strengthening, Clarification of behavioral patterns, discussion of alternatives, identification of emotions, processing of reactions, validation, identification and setting of healthy boundaries, communication exercises and conflict exploration DAILY PRACTICE: Movement and excercise Breathe Mindfulness Meditation at least 2X per day Journaling daily Positive affirmations PAIN SCALE: FOLLOW UP: 4 week. ADDITIONAL NOTES: Pt to continue to explore issues that topher from today's session. PLAN: Continue to explore issues pertaining to dynamics with friend and moving forward in either direction.Story about praying for Yonas in [place]. CELSO Santiago [facility]ISW-[facility], [facility] [place] [facility] Medicine [facility] 05-21-2022 Note HNO ID: [id number] Author: DALTON Santiago Service: ? Author Type: Whitewasher Type: Progress Notes Filed: 05/21/2022 11:35 AM Note Text: Virtual Visit I have communicated my name and active licensure. The patient's identity and physical location were verified at the time of this visit. The patient has been informed of the risks and benefits of -- and alternatives to -- treatment through a remote evaluation and consents to proceed with the evaluation remotely. DATE OF SERVICE: 05/21/2022 Duration: 60 min Start 10:30 am End 11:30 am SUBJECTIVE: Pt presented today with very busy weekend coming up. Pt goes to [employer] and [employer]. Pt is 10 pounds heavier than last year. Pt is getting back to eating healthy and exercise. 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 There are many positive things she can be thankful for. Pt went to 2 funerals of friends. Ran out of good authors to listen to. Pt has difficult time connecting. Mental Status: Mood: blah mode Affect: appropriate Thoughts/Associations:goal directed Suicidal/Homicidal Ideation: None expressed or evidenced PROGRESS TO DATE: Pt was able to discuss current situations, which appear to have significant impact on her gratitude and her feelings of sadness. Pt began to work through these emotionally memories through conflict resolution and expression of feelings. Pt seemed to gain increased insight into how long repressed emotions seem to be impacting pain and unwanted behaviors. Pt was taught techniques for facilitating a state of relaxation and reducing stress level. GENERAL COMPLIANCE WITH ONGOING TREATMENT PLAN: PT reports using the mind/body tools regularly since last session. Reports exploring issues that came up last session. INTERVENTION(S) Talk psychotherapy, CBT interventions, supportive interactions, Clarification of behavioral patterns, discussion of alternatives, identification of emotions, processing of reactions, validation DAILY PRACTICE: Movement and excercise Breathe Mindfulness Meditation at least 2X per day Journaling daily Positive affirmations PAIN SCALE: FOLLOW UP: 4 week. ADDITIONAL NOTES: Pt to continue to explore issues that topher from today's session. PLAN: Continue to explore issues pertaining to connecting. Story about praying for Yonas in [place] CELSO Santiago LISW-S, [facility] Psychotherapist [facility] 04-16-2022 Note HNO ID: [id number] Author: DALTON Santiago Service: ? Author Type: Whitewasher Type: Progress Notes Filed: 04/28/2022 3:33 PM Note Text: Virtual Visit I have communicated my name and active licensure. The patient's identity and physical location were verified at the time of this visit. Either the patient or their legal statement services representative has been informed of the risks and benefits of -- and alternatives to -- treatment through a remote evaluation and consents to proceed with the evaluation remotely. DATE OF SERVICE: 04/16/2022 Duration: 60 min Start 7:30 am End 8:30 am SUBJECTIVE: Pt presented today with feeling very good mentally and emotionally. Pt continues to detox from mold.. Mental Status: Mood: euthymic Affect: appropriate Thoughts/Associations:goal directed Suicidal/Homicidal Ideation: None expressed or evidenced PROGRESS TO DATE: Pt was able to discuss current thoughts and emotions, which appear to have significant impact on her healthy feeling good. Pt began to work through these through conflict resolution and expression of feelings. Pt seemed to gain increased insight into how long repressed emotions seem to be impacting pain and unwanted behaviors. Pt was taught techniques for facilitating a state of relaxation and reducing stress level. GENERAL COMPLIANCE WITH ONGOING TREATMENT PLAN: PT reports using the mind/body tools regularly since last session. Reports exploring issues that came up last session. INTERVENTION(S) Talk psychotherapy, supportive interactions, interpretation of unconscious motivation, ego strengthening DAILY PRACTICE: Movement and excercise Breathe Mindfulness Meditation at least 2X per day Journaling daily Positive affirmations PAIN SCALE: FOLLOW UP: 4 week. ADDITIONAL NOTES: Pt to continue to explore issues that topher from today's session. 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 CELSO Santiago LISW-S, [employer] [facility] Psychotherapist [facility] 04-14-2022 Note HNO ID: [id number] Author: Luna Bedolla MD Service: ? Author Type: Physician Type: Progress Notes Filed: 04/14/2022 9:31 AM Note Text: [facility] Follow-up Visit Patient: Cody Meier There is no height or weight on file to calculate BMI. RMR can't be calculated - Weight unrecorded in last 120 days. Waist measurement: No waist measurement recorded. BP: ALLERGIES Allergen Reactions Epinephrine Mental Status Change passed out Current Outpatient Medications on File Prior to Visit Medication Sig O.N.E. Multivitamin (Pure Encapsulations) 1 capsule daily, with a meal, 60 ct NAC 600mg (Pure Encapsulations) - liver support (helps make glutathione) 3 capsules, in divided doses, between meals Glutathione (Bancha) - Liver support/detox Use 8 pumps daily (1000mg) divided doses through out the day. (2 pumps = 100 mg Glutathione). Work up slowly to the higher dose. Target GB-X ([employer]) Dissolve the content of 1 sachet daily in water (3-4 oz.), preferably lukewarm, and stir before consumption. Take on an empty stomach in the morning, before bed, or as directed by a healthcare professional. Digestion GB 180 ct. (Pure Encapsulations) Take 1 capsule with meals OTC NUTRITIONAL SUPPLEMENT lysine Magnesium Glycinate 120 mg (Pure Encapsulations) Take 2 capsules in the evening and 2 in the daytime O.N.E. [place] (Pure Encapsulations) Take 2 capsules by mouth daily with food. Vitamin D3 5000 IUs (Pure Encapsulations) Take 1 capsule by mouth daily with food. No current facility-administered medications on file prior to visit. PAST MEDICAL HISTORY Diagnosis Date Gluten intolerance NEGATIVE MEDICAL HISTORY Other voice and resonance disorders due to multiple allergies Uterine prolapse PAST SURGICAL HISTORY Procedure Laterality Date ENDOSCOPY, ESOPHAGUS for hoarseness-negative LIGATE FALLOPIAN TUBE Tubal ligation PAST SURGICAL HISTORY OF left breast biopsy Social History Tobacco Use Smoking status: Former Types: Cigarettes Quit date: 04/26/1977 Years since quittin.9 Smokeless tobacco: Never Tobacco comments: Pt smoked 1-2 packs daily on AND off x 10 years. Substance Use Topics Alcohol use: No Alcohol/week: 2.5 standard drinks Types: 1 Glasses of Wine (5oz) per week Drug use: No Functional Medicine Timeline MSQ: Patient Entered Questionnaire PROMIS Scale T-Scores -- HIGHER SCORES BETTER PROMIS Global Health - (T-Scores - the mean of general population = 50. Five points is a clinically meaningful difference.) 03/22/2022 04/08/2022 04/09/2022 Physical T-Score 54.1 54.1 54.1 Mental T-Score - 56 56 Depression Screening: PHQ-9 04/28/2019 01/26/2020 Score 2 0 PHQ-9 Self Harm 04/28/2019 01/26/2020 Question 9 Not at all Not at all PHQ-9 Self-Harm (Item 9) response options: 0 Not at all 1 Several days 2 More than half the days 3 Nearly every day PHQ-9 Levels: 0-4 Minimal depression 5-9 Mild depression 10-14 Moderate depression 15-19 Moderately severe depression 20-27 Severe depression April 14, 2022 Luna Bedolla MD Subjective: Virtual Has been cooking, over carbing. She was feeling great about this. Not being so obsessed with her self care. Having issues with mold. Having cheese, no problems, except her stomach is uneasy. Has urethral carbuncle, used estrogen cream. February 10, 2022 Luna Bedolla MD Subjective: Virtual Pt wanting to review her present plan, had a lot of stress with recent travels. Mold is her main concern November 05, 2021 Luna Bedolla MD Subjective: Virtual 76 yr old with mold, extremity neuropathy, loose stools. 10/16/21-Just got covid, throat issues, phlegm , feeling like choking. She was very tired. Headaches and body aches. Her gut is good. Stopped the detox in July and could eat all kinds of food, gained 5 lbs. Walking daily. No SOB. July 20, 2021 Luna Bedolla MD Subjective: Virtual 76 yr old with mold, extremity neuropathy, loose stools. Stopped the s boulardii 6 weeks ago, tried the gi detox one per day based on tolerance, ok until July 03, so stopped all. Feeling overwhelmed responsibilities to care for her living space. April 16, 2021 Luna Bedolla MD ( [place]) Subjective: Virtual 75 yr old female with hx lower extremity neuropathy, loose stools, + mold and mycotoxins. Pt was last seen January 2021. Things are under control, spelt organic pretzels- if she has too many daily then having issues. Stress is good, staying at home, sewing, one volunteer day. Spending time with food prep. January 16, 2021 Luna Bedolla MD Subjective: Virtual The diarrhea situation was ? Related to a lot of food fresh at the same time. Then it settled down. Sauerkraut caused issues. Going out it can be hard. Exercise now more. 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 October 15 (more content not included)... [facility] 04-14-2022 History of Presen t illness Narrative [place] Virtual Follow-up Visit Patient: Cody Meier There is no height or weight on file to calculate BMI. RMR can't be calculated - Weight unrecorded in last 120 days. Waist measurement: No waist measurement recorded. BP: ALLERGIES Allergen Reactions Epinephrine Mental Status Change passed out Current Outpatient Medications on File Prior to Visit Medication Sig O.N.E. Multivitamin (Pure Encapsulations) 1 capsule daily, with a meal, 60 ct NAC 600mg (Pure Encapsulations) - liver support (helps make glutathione) 3 capsules, in divided doses, between meals Glutathione (Bancha) - Liver support/detox Use 8 pumps daily (1000mg) divided doses through out the day. (2 pumps = 100 mg Glutathione). Work up slowly to the higher dose. Target GB-X ([employer]) Dissolve the content of 1 sachet daily in water (3-4 oz.), preferably lukewarm, and stir before consumption. Take on an empty stomach in the morning, before bed, or as directed by a healthcare professional. Digestion GB 180 ct. (Pure Encapsulations) Take 1 capsule with meals OTC NUTRITIONAL SUPPLEMENT lysine Magnesium Glycinate 120 mg (Pure Encapsulations) Take 2 capsules in the evening and 2 in the daytime O.N.E. [place] (Pure Encapsulations) Take 2 capsules by mouth daily with food. Vitamin D3 5000 IUs (Pure Encapsulations) Take 1 capsule by mouth daily with food. No current facility-administered medications on file prior to visit. PAST MEDICAL HISTORY Diagnosis Date Gluten intolerance NEGATIVE MEDICAL HISTORY Other voice and resonance disorders due to multiple allergies Uterine prolapse PAST SURGICAL HISTORY Procedure Laterality Date ENDOSCOPY, ESOPHAGUS for hoarseness-negative LIGATE FALLOPIAN TUBE Tubal ligation PAST SURGICAL HISTORY OF left breast biopsy Social History Tobacco Use Smoking status: Former Types: Cigarettes Quit date: 04/26/1977 Years since quittin.9 Smokeless tobacco: Never Tobacco comments: Pt smoked 1-2 packs daily on & off x 10 years. Substance Use Topics Alcohol use: No Alcohol/week: 2.5 standard drinks Types: 1 Glasses of Wine (5oz) per week Drug use: No Functional Medicine Timeline MSQ: Patient Entered Questionnaire PROMIS Scale T-Scores -- HIGHER SCORES BETTER PROMIS Global Health - (T-Scores - the mean of general population = 50. Five points is a clinically meaningful difference.) 03/22/2022 04/08/2022 04/09/2022 Physical T-Score 54.1 54.1 54.1 Mental T-Score - 56 56 Depression Screening: PHQ-9 04/28/2019 01/26/2020 Score 2 0 PHQ-9 Self Harm 04/28/2019 01/26/2020 Question 9 Not at all Not at all PHQ-9 Self-Harm (Item 9) response options: 0 Not at all 1 Several days 2 More than half the days 3 Nearly every day PHQ-9 Levels: 0-4 Minimal depression 5-9 Mild depression 10-14 Moderate depression 15-19 Moderately severe depression 20-27 Severe depression April 14, 2022 Luna Bedolla MD Subjective: Virtual Has been cooking, over carbing. She was feeling great about this. Not being so obsessed with her self care. Having issues with mold. Having cheese, no problems, except her stomach is uneasy. Has urethral carbuncle, used estrogen cream. February 10, 2022 Luna Bedolla MD Subjective: Virtual Pt wanting to review her present plan, had a lot of stress with recent travels. Mold is her main concern November 05, 2021 Luna Bedolla MD Subjective: Virtual 76 yr old with mold, extremity neuropathy, loose stools. 10/16/21-Just got covid, throat issues, phlegm , feeling like choking. She was very tired. Headaches and body aches. Her gut is good. Stopped the detox in July and could eat all kinds of food, gained 5 lbs. Walking daily. No SOB. July 20, 2021 Luna Bedolla MD Subjective: Virtual 76 yr old with mold, extremity neuropathy, loose stools. Stopped the s boulardii 6 weeks ago, tried the gi detox one per day based on tolerance, ok until July 03, so stopped all. Feeling overwhelmed responsibilities to care for her living space. April 16, 2021 Luna Bedolla MD ( [place]) Subjective: Virtual 75 yr old female with hx lower extremity neuropathy, loose stools, + mold and mycotoxins. Pt was last seen January 2021. Things are under control, spelt organic pretzels- if she has too many daily then having issues. Stress is good, staying at home, sewing, one volunteer day. Spending time with food prep. January 16, 2021 Luna Bedolla MD Subjective: Virtual The diarrhea situation was ? Related to a lot of food fresh at the same time. Then it settled down. Sauerkraut caused issues. Going out it can be hard. Exercise now more. 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 October 15, 2020 Luna Bedolla MD Subjective: Virtual Some ways doing well and then relapse - some diarrhea for weeks. Started to eat fresh tomatoes a lot. All of a sudden- she gets happy in August/ September ( has SAD ) uses a sun box daily. Her friend started her in a book group that was wonder. Review of Systems: Urinary concerns Objective: virtual There were no vitals taken for this visit. Bioelectrical Impedance Analysis Results by [employer] Recent Results from: 11/20/18 at 7:44 AM BMI: 20.41 kg/m General Test Result Range Phase Angle (PA) 4.1 Min: 5.2 Mean: 6.2 Max: 7.2 Below min by 1.1 Basal Metabolic Rate (BMR) 1274 Min: 1098.4 Mean: 1245.8 Max: 1393.2 Above midpoint by 28.2 (59.6% of rng) Fat & Fat Free Mass Test Result Range Fat (lbs) 37.3 Min: 35.8 Mean: 56.9 Max: 78 Lower than midpoint by 19.6 (3.6% of rng) Fat % 32.4 Min: 29.9 Mean: 36.8 Max: 43.7 Lower than midpoint by 4.4 (18.1% of rng) Fat Free Mass (FFM) lbs 77.9 Min: 79.3 Mean: 93.4 Max: 107.5 Below min by 1.4 Total Body Water Test Result Range TBW (lbs) 55 Min: 59.3 Mean: 70.1 Max: 80.9 Below min by 4.3 TBW % of FFM 70.6 Min: 73.6 Mean: 75 Max: 76.4 Below min by 3 Intracellular Water Test Result Range ICW (lbs) 28.8 Min: 32.4 Mean: 36.8 Max: 41.2 Below min by 3.6 ICW % of FFM 37 Min: 37.9 Mean: 39.5 Max: 41.1 Below min by .9 Extracellular Water Test Result Range ECW (lbs) 26.2 Min: 26.9 Mean: 33.3 Max: 39.7 Below min by .7 ECW % of FFM 33.6 Min: 33.7 Mean: 35.4 Max: 37.1 Below min by .1 Physical Exam:virtual Physical Exam CURRENT Functional Medicine Assessment/ PLAN Nutritional Assessment Low fat , GF Digestive Function Bloating, Loose stools--> fecal incontinence-->gone ( slight due to a lot of tomatoes) Gurgling , gas SIBO negative Madi GI Effects High fecal fats High beta glucuronidase dysbiosis 01/07 Inflammation/Immune Function Dry burning eyes, and throat- gone Throat clearing- CBC reviewed 05/2021 improved Energy Production/Function: Depression- lifted ( target gbx is great ) GONE Some confusion noted Detoxification Function Mold exposure- 15 YRS AGO , 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 ) ( 4419.12 previous GPL 01/2019 / no provoking ) GPL Sep 2020 Gliotoxin GONE Ochratoxin 70.18 Sterigm o mycophenolic acid 47.16 fusarium-Enniatin 2.02 Lesia 0 Citrinin 166.57 GPL Mar 24, 2021 ( GI Detox, NAC, s boulardii, glutathione ) Ochratoxin A - 14.37 All others 0 RTL 03/2022 Ochratoxin A 4.356 Tricothecenes 0.16 Gliotoxin equivocal Zear 0.812 01/2021 Scr 0.60 GFR 104 [id number] mold in her home, cleaned up Chemicals + Sweating now Hormonal Function: Menopause Prolapsed uterus-Pessary Structural Function Assessment Assessment: Z77.120 Mold exposure (primary encounter diagnosis) Plan and Lifestyle Prescription Plan/Instructions/Resources: Ochratoxin A- 1 activated charcoal in between meals if tolerated then take , add 1 NAC capsule per day. If all good, no constipation or herxing, then increase to 2 charcoal at the same time and one NAC twice daily if you can. Finish up the glutathione. 2 pumps twice daily. Detox bath, or sauna. Vitamin D ( 91)- take 5,000 international unit(s) on Tuesday and Tuesday. Once done, take 1000 international unit(s) per day. 3 x a week, Tuesday, Tuesday, Tuesday do your weights. Medications/Supplements Recommended: Medication orders placed this encounter Activated Charcoal ([employer]) Si capsules, 2 times daily Dispense: 90 capsule Refill: 0 NAC 600mg (Pure Encapsulations) - liver support (helps make glutathione) Si capsules, in divided doses, between meals Refill: 0 I recommend the supplements from the [facility] Healthy Living Store Online Store at [email or web address].BombBomb/ as we have thoroughly evaluated the research and use only highest quality supplements. Please use code: functional. Future Plans: Mold Follow up: Please schedule a follow up visit with the following Caregivers: Provider: 8weeks LIFESTYLE PRESCRIPTION Functional Nutrition: Per groundwater consultant Sleep: Sleep goal for most adults is a minimum of 7-9 hours nightly. Exercise Prescription: Numerous studies confirm the benefits of regular moderate aerobic exercise (walking, swimming, elliptical machine, cycling, etc.) for 30 min 5 days per week (150 min goal). Stress Management: 1) Please look into this Heart Rate Variability BioFeedback Tool (www.heartmath.org). 2) A regular, daily meditation practice of at least 15-20 minutes will change your brain--as well as your genes! Behavioral Health Therapist: If I recommended counseling or individual therapy, please schedule an individual appointment with our Functional Medicine Behavioral Health Therapist after your visit today. The Behavioral Health Therapist helps patients identify and understand feelings and behaviors, experience the process of making positive change, and gain healthy coping skills. Health Coaching: Please consider scheduling with our [place] for Functional Medicine health coaches for a phone or virtual visit for accountability, goal setting and help with behavior change release manager the next 6-8 weeks to be successful with your goals. [phone]. Smart phone apps to begin a meditative practice: Headspace (free for first 10 days) Insight Meditation Timer- (Free)-Great all-around norma to use for guided meditations of many different types and lengths or just to use as a tool to time and track your meditation practice. This is my absolute favorite! Calm- (Free) Walking Meditations-($1.99)- Get your walk AND meditation done together. A good way to start out for individuals who feel they just can't sit still to begin a meditative practice. During the next 6-8 weeks you'll be working on your diet plan discussed with our groundwater consultant, allowing for gentle detoxification and decreasing inflammation - while we are gathering your lab results and combining those with your complete history to formulate a very personalized treatment plan. LAB results: Due to the complexity of the testing performed, we are not able to review labs via [employer] or over the phone, but please know, if any of your labs are critical we will contact you. Otherwise, we will review all your labs at your next visit. We will go over a lot of information during your follow up visit - so please be well-rested and you may want to bring someone with you, if possible. Also make sure to schedule with the groundwater consultant (this will not happen automatically) as you did with your first visit so that she can review nutritional aspects of your treatment plan. By your 3rd visit, as things are improving, we will likely transition you to one of our very capable Certified Nurse Practitioners/Physician Assistants for further follow-up. Potential future labs: Any [facility] labs ordered take about 4 weeks to return. Do them as soon as possible so that we have the results before your next appointment. You can access them on the [facility] website and it can be beneficial if you review them prior to your next visit. [email or web address]. Read about NutrEval if this was ordered. *Luna Bedolla MD I spent a total of 30 minutes on the date of the service which included preparing to see the patient, completing clinical documentation, counseling and educating the patient/family/caregiver, and ordering medications, tests, or procedures. documented in this encounter [facility] 03-26-2022 Note HNO ID: [id number] Author: DALTON Santiago Service: ? Author Type: Whitewasher Type: Progress Notes Filed: 03/26/2022 11:55 AM Note Text: Virtual Visit DATE OF SERVICE: 03/26/2022 Duration: 60 min Start 7:30 am End 8:30 am SUBJECTIVE: Pt presented today with having spiraled into fear of aging and decline. Friend called book study [employer], [employer], felt very down, pulled out and was able to express herself. Reached out to friends and was able to feel better. Pt also shoveled snow allowed to shift. Mental Status: Mood: euthymic Affect: appropriate Thoughts/Associations:goal directed Suicidal/Homicidal Ideation: None expressed or evidenced PROGRESS TO DATE: Pt was able to discuss anxiety and fear, which appear to have significant impact on depression that spiraled. Pt began to work through these emotional triggers through conflict resolution and expression of feelings. Pt seemed to gain increased insight into how long repressed emotions seem to be impacting pain and unwanted behaviors. Pt was able to use techniques for facilitating a state of relaxation and reducing stress level. Pt was able to process her fears of getting old and use self talk to shift out of fear. GENERAL COMPLIANCE WITH ONGOING TREATMENT PLAN: PT reports using the mind/body tools regularly since last session. Reports exploring issues that came up last session. INTERVENTION(S) Talk psychotherapy, CBT interventions, Conflict resolution w Breath therapy, supportive interactions, interpretation of unconscious motivation, ego strengthening DAILY PRACTICE: Movement and excercise Breathe Mindfulness Meditation at least 2X per day Journaling daily Positive affirmations PAIN SCALE: FOLLOW UP: 4 week. ADDITIONAL NOTES: Pt to continue to explore issues that topher from today's session. PLAN: Continue to explore issues pertaining to self talk and affirmations for the process she engages in, knowing she has a choice in her experience. CELSO Santiago, [facility]Kimber, [facility] Holistic Psychotherapist [place] [facility] 02-10-2022 History of Presen t illness Narrative [place] Phone Functional Medicine Follow-up Visit This Team Access Model visit is a phone encounter. It required patient-provider interaction for the medical decision making as documented below. Patient: Cody Meier There is no height or weight on file to calculate BMI. RMR can't be calculated - Weight unrecorded in last 120 days. ALLERGIES Allergen Reactions Epinephrine Mental Status Change passed out Current Outpatient Medications on File Prior to Visit Medication Sig O.N.E. Multivitamin (Pure Encapsulations) 1 capsule daily, with a meal, 60 ct NAC 600mg (Pure Encapsulations) - liver support (helps make glutathione) 3 capsules, in divided doses, between meals Glutathione (Bancha) - Liver support/detox Use 8 pumps daily (1000mg) divided doses through out the day. (2 pumps = 100 mg Glutathione). Work up slowly to the higher dose. Target GB-X (Allergy Research Group) Dissolve the content of 1 sachet daily in water (3-4 oz.), preferably lukewarm, and stir before consumption. Take on an empty stomach in the morning, before bed, or as directed by a healthcare professional. Digestion GB 180 ct. (Pure Encapsulations) Take 1 capsule with meals OTC NUTRITIONAL SUPPLEMENT lysine Magnesium Glycinate 120 mg (Pure Encapsulations) Take 2 capsules in the evening and 2 in the daytime O.N.E. [place] (Pure Encapsulations) Take 2 capsules by mouth daily with food. Vitamin D3 5000 IUs (Pure Encapsulations) Take 1 capsule by mouth daily with food. No current facility-administered medications on file prior to visit. PAST MEDICAL HISTORY Diagnosis Date Gluten intolerance NEGATIVE MEDICAL HISTORY Other voice and resonance disorders due to multiple allergies Uterine prolapse PAST SURGICAL HISTORY Procedure Laterality Date ENDOSCOPY, ESOPHAGUS for hoarseness-negative LIGATE FALLOPIAN TUBE Tubal ligation PAST SURGICAL HISTORY OF left breast biopsy Social History Tobacco Use Smoking status: Former Types: Cigarettes Quit date: 04/26/1977 Years since quittin.8 Smokeless tobacco: Never Tobacco comments: Pt smoked 1-2 packs daily on & off x 10 years. Substance Use Topics Alcohol use: No Alcohol/week: 2.5 standard drinks Types: 1 Glasses of Wine (5oz) per week Drug use: No Functional Medicine Timeline Patient Entered Questionnaire PROMIS Scale T-Scores -- HIGHER SCORES BETTER PROMIS Global Health - (T-Scores - the mean of general population = 50. Five points is a clinically meaningful difference.) 12/11/2021 12/16/2021 01/16/2022 Physical T-Score 54.1 54.1 54.1 Mental T-Score 56 53.3 53.3 Depression Screening: PHQ-9 04/28/2019 01/26/2020 Score 2 0 PHQ-9 Self Harm 04/28/2019 01/26/2020 Question 9 Not at all Not at all PHQ-9 Self-Harm (Item 9) response options: 0 Not at all 1 Several days 2 More than half the days 3 Nearly every day PHQ-9 Levels: 0-4 Minimal depression 5-9 Mild depression 10-14 Moderate depression 15-19 Moderately severe depression 20- Severe depression February 10, 2022 Luna Bedolla MD Subjective: Virtual Pt wanting to review her present plan, had a lot of stress with recent travels. Mold is her main concern November 05, 2021 Luna Bedolla MD Subjective: Virtual 76 yr old with mold, extremity neuropathy, loose stools. 10/16/21-Just got covid, throat issues, phlegm , feeling like choking. She was very tired. Headaches and body aches. Her gut is good. Stopped the detox in July and could eat all kinds of food, gained 5 lbs. Walking daily. No SOB. July 20, 2021 Luna Bedolla MD Subjective: Virtual 76 yr old with mold, extremity neuropathy, loose stools. Stopped the s boulardii 6 weeks ago, tried the gi detox one per day based on tolerance, ok until July 03, so stopped all. Feeling overwhelmed responsibilities to care for her living space. April 16, 2021 Luna Bedolla MD ( [place]) Subjective: Virtual 75 yr old female with hx lower extremity neuropathy, loose stools, + mold and mycotoxins. Pt was last seen January 2021. Things are under control, spelt organic pretzels- if she has too many daily then having issues. Stress is good, staying at home, sewing, one volunteer day. Spending time with food prep. January 16, 2021 Luna Bedolla MD Subjective: Virtual The diarrhea situation was ? Related to a lot of food fresh at the same time. Then it settled down. Sauerkraut caused issues. Going out it can be hard. Exercise now more. 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 October 15, 2020 Luna Bedolla MD Subjective: Virtual Some ways doing well and then relapse - some diarrhea for weeks. Started to eat fresh tomatoes a lot. All of a sudden- she gets happy in September ( has SAD ) uses a sun box daily. Her friend started her in a book group that was wonder. Review of Systems: Anxiety Objective: Phone Physical Exam: Phone CURRENT Functional Medicine Assessment/ PLAN Nutritional Assessment Low fat , GF Digestive Function Bloating, Loose stools--> fecal incontinence-->gone ( slight due to a lot of tomatoes) Gurgling , gas SIBO negative Madi GI Effects High fecal fats High beta glucuronidase dysbiosis 01/07 Inflammation/Immune Function Dry burning eyes, and throat- gone Throat clearing- CBC reviewed 05/2021 improved Energy Production/Function: Depression- lifted ( target gbx is great ) GONE Some confusion noted Detoxification Function Mold exposure- 15 YRS AGO , 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 ) ( 4419.12 previous GPL 01/2019 / no provoking ) GPL Sep 2020 Gliotoxin GONE Ochratoxin 70.18 Sterigm o mycophenolic acid 47.16 fusarium-Enniatin 2.02 Lesia 0 Citrinin 166.57 GPL Mar 24, 2021 ( GI Detox, NAC, s boulardii, glutathione ) Ochratoxin A - 14.37 All others 0 01/2021 Scr 0.60 GFR 104 5661-9726 mold in her home, cleaned up Chemicals + Sweating now Hormonal Function: Menopause Prolapsed uterus-Pessary Structural Function Assessment Assessment: Z77.120 Mold exposure (primary encounter diagnosis) R19.5 Loose stools Plan and Lifestyle Prescription Plan/Instructions/Resources: (For ongoing medical care please follow up with your primary care provider or specialist while working with functional medicine .) Tests ordered :real time labs mycotoxins Mold testing- take 400 mg of glutathione twice daily for 4 days prior to urine collection. Take a hot shower prior to urine collection. We will try to see about a visit in April, we will call you. Medications/Supplements Recommended: No orders of the defined types were placed in this encounter. Current Outpatient Medications Medication Sig O.N.E. Multivitamin (Pure Encapsulations) 1 capsule daily, with a meal, 60 ct NAC 600mg (Pure Encapsulations) - liver support (helps make glutathione) 3 capsules, in divided doses, between meals Glutathione (Bancha) - Liver support/detox Use 8 pumps daily (1000mg) divided doses through out the day. (2 pumps = 100 mg Glutathione). Work up slowly to the higher dose. Target GB-X (Allergy Research Group) Dissolve the content of 1 sachet daily in water (3-4 oz.), preferably lukewarm, and stir before consumption. Take on an empty stomach in the morning, before bed, or as directed by a healthcare professional. Digestion GB 180 ct. (Pure Encapsulations) Take 1 capsule with meals OTC NUTRITIONAL SUPPLEMENT lysine Magnesium Glycinate 120 mg (Pure Encapsulations) Take 2 capsules in the evening and 2 in the daytime O.N.E. [place] (Pure Encapsulations) Take 2 capsules by mouth daily with food. Vitamin D3 5000 IUs (Pure Encapsulations) Take 1 capsule by mouth daily with food. No current facility-administered medications for this visit. I recommend the supplements from the [facility] [employer] Online Store as we have thoroughly evaluated the research and use only highest quality supplements. Get started by following four easy steps: Visit the following webpage: [email or web address] Create an account: Enter your first name, last name, email address which will be your username Create password Select a referring physician from the dropdown box. If they are not listed, select other If you are a new patient, enter the following provider code: Functional Order recommended supplementation Enter the supplement name in the search box Add all supplements to your cart and proceed to checkout. Orders of $100 or more qualify for free shipping. *Please allow 5-7 business days for delivery. For issues with your MRN please call [phone] Provider Code: Functional (not case sensitive) Future Plans: Follow up: Please schedule a follow up visit with the following Caregivers: Provider: Virtual visit with Dr Bedolla in 10-12 weeks or first available. Please call or go to Trovebox to schedule a follow up visit. 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 Exercise Prescription: Numerous studies confirm the benefits of regular moderate aerobic exercise (walking, swimming, elliptical machine, cycling, etc.) for 30 min 5 days per week (150 min goal). Stress Management: 1) Please look into this Heart Rate Variability BioFeedback Tool (www.heartmath.org). 2) A regular, daily meditation practice of at least 15-20 minutes will change your brain--as well as your genes! Behavioral Health Therapist: If I recommended counseling or individual therapy, please schedule an individual appointment with our Functional Medicine Behavioral Health Therapist after your visit today. The Behavioral Health Therapist helps patients identify and understand feelings and behaviors, experience the process of making positive change, and gain healthy coping skills. Health Coaching: Please consider scheduling with our [facility] [place] [facility] health coaches for a phone or virtual visit for accountability, goal setting and help with behavior change release manager the next 6-8 weeks to be successful with your goals. [phone]. Smart phone apps to begin a meditative practice: Headspace (free for first 10 days) Insight Meditation Timer- (Free)-Great all-around norma to use for guided meditations of many different types and lengths or just to use as a tool to time and track your meditation practice. This is my absolute favorite! Calm- (Free) Walking Meditations-($1.99)- Get your walk AND meditation done together. A good way to start out for individuals who feel they just can't sit still to begin a meditative practice. During the next 6-8 weeks you'll be working on your diet plan discussed with our groundwater consultant, allowing for gentle detoxification and decreasing inflammation - while we are gathering your lab results and combining those with your complete history to formulate a very personalized treatment plan. LAB results: Due to the complexity of the testing performed, we are not able to review labs via C$ cMoneyt or over the phone, but please know, if any of your labs are critical we will contact you. Otherwise, we will review all your labs at your next visit. Make sure to schedule with the groundwater consultant (this will not happen automatically) as you did with your first visit so that she can review nutritional aspects of your treatment plan. Potential future labs: Any Madi labs ordered take about 6 -8 weeks to return. Do them as soon as possible so that we have the results before your next appointment. You can access them on the [facility] website and it can be beneficial if you review them prior to your next visit. [email or web address]. Read about NutrEval/GI Effects if this was ordered. [facility] Billing Questions: [email or web address] Please log into the link if you have questions regarding how to perform any of the Madi Testing Kits ( such as GI Effects, Nutreval, Hydrogen Breath Test ). Please obtain blood draws for the [facility] NutrEval Profile and other test kits ordered by your provider at the [facility] at designated [facility] Labs and times. The designated labs are as follows: ~[facility] [place] : Q2 @ [facility] Tuesday-Tuesday 8am-1 pm and 1:30pm-4:30 pm G-10 Tuesday-Tuesday 8am-5pm. ~[facility] : Labs Tuesday-Tuesday 8am-1pm. ~Or at a local lab where you live: [facility] Luna Bedolla MD Time spend with patient: I spent 30 minutes in the visit with more than 50% of the time spent counseling in regards to above. documented in this encounter [facility] 11-05-2021 History of Presen t illness Narrative Virtual Follow-up Visit This Team Access Model visit is a virtual encounter. It required patient-provider interaction for the medical decision making as documented below. Patient: Cody Meier There is no height or weight on file to calculate BMI. RMR can't be calculated - Weight unrecorded in last 120 days. ALLERGIES Allergen Reactions Epinephrine Mental Status Change passed out Current Outpatient Medications on File Prior to Visit Medication Sig O.N.E. Multivitamin (Pure Encapsulations) 1 capsule daily, with a meal, 60 ct NAC 600mg (Pure Encapsulations) - liver support (helps make glutathione) 3 capsules, in divided doses, between meals Glutathione (Bancha) - Liver support/detox Use 8 pumps daily (1000mg) divided doses through out the day. (2 pumps = 100 mg Glutathione). Work up slowly to the higher dose. Target GB-X (Allergy Research Group) Dissolve the content of 1 sachet daily in water (3-4 oz.), preferably lukewarm, and stir before consumption. Take on an empty stomach in the morning, before bed, or as directed by a healthcare professional. Digestion GB 180 ct. (Pure Encapsulations) Take 1 capsule with meals OTC NUTRITIONAL SUPPLEMENT lysine Magnesium Glycinate 120 mg (Pure Encapsulations) Take 2 capsules in the evening and 2 in the daytime O.N.E. [place] (Pure Encapsulations) Take 2 capsules by mouth daily with food. Vitamin D3 5000 IUs (Pure Encapsulations) Take 1 capsule by mouth daily with food. No current facility-administered medications on file prior to visit. PAST MEDICAL HISTORY Diagnosis Date Gluten intolerance NEGATIVE MEDICAL HISTORY Other voice and resonance disorders due to multiple allergies Uterine prolapse PAST SURGICAL HISTORY Procedure Laterality Date ENDOSCOPY, ESOPHAGUS for hoarseness-negative LIGATE FALLOPIAN TUBE Tubal ligation PAST SURGICAL HISTORY OF left breast biopsy Social History Tobacco Use Smoking status: Former Types: Cigarettes Quit date: 04/26/1977 Years since quittin.5 Smokeless tobacco: Never Tobacco comments: Pt smoked 1-2 packs daily on & off x 10 years. Substance Use Topics Alcohol use: No Alcohol/week: 2.5 standard drinks Types: 1 Glasses of Wine (5oz) per week Drug use: No Functional Medicine Timeline Patient Entered Questionnaire PROMIS Scale T-Scores -- HIGHER SCORES BETTER PROMIS Global Health - (T-Scores - the mean of general population = 50. Five points is a clinically meaningful difference.) 08/31/2021 09/30/2021 10/30/2021 Physical T-Score 61.9 61.9 50.8 Mental T-Score 56 56 43.5 Depression Screening: PHQ-9 04/28/2019 01/26/2020 Score 2 0 PHQ-9 Self Harm 04/28/2019 01/26/2020 Question 9 Not at all Not at all PHQ-9 Self-Harm (Item 9) response options: 0 Not at all 1 Several days 2 More than half the days 3 Nearly every day PHQ-9 Levels: 0-4 Minimal depression 5-9 Mild depression 10-14 Moderate depression 15-19 Moderately severe depression 20-27 Severe depression November 05, 2021 Luna Bedolla MD Subjective: Virtual 76 yr old with mold, extremity neuropathy, loose stools. 10/16/21-Just got covid, throat issues, phlegm , feeling like choking. She was very tired. Headaches and body aches. Her gut is good. Stopped the detox in July and could eat all kinds of food, gained 5 lbs. Walking daily. No SOB. July 20, 2021 Luna Bedolla MD Subjective: Virtual 76 yr old with mold, extremity neuropathy, loose stools. Stopped the s boulardii 6 weeks ago, tried the gi detox one per day based on tolerance, ok until July 03, so stopped all. Feeling overwhelmed responsibilities to care for her living space. April 16, 2021 Luna Bedolla MD ( [place]) Subjective: Virtual 75 yr old female with hx lower extremity neuropathy, loose stools, + mold and mycotoxins. Pt was last seen January 2021. Things are under control, spelt organic pretzels- if she has too many daily then having issues. Stress is good, staying at home, sewing, one volunteer day. Spending time with food prep. January 16, 2021 Luna Bedolla MD Subjective: Virtual The diarrhea situation was ? Related to a lot of food fresh at the same time. Then it settled down. Sauerkraut caused issues. Going out it can be hard. Exercise now more. 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 October 15, 2020 Luna Bedolla MD Subjective: Virtual Some ways doing well and then relapse - some diarrhea for weeks. Started to eat fresh tomatoes a lot. All of a sudden- she gets happy in August/ September ( has SAD ) uses a sun box daily. Her friend started her in a book group that was wonder. June 16, 2020 Luna Bedolla MD Subjective: Virtual Feeling worse, taking GI Detox and almond butter. Feb 2020 Subjective: virtual MOLD Update: Better -depression vida with the winter ( she likes being alone so lock down is ok ) , brain fog , Things are not overwhelm her like before, control over sugar cravings/ salt/ fat. Stool incontinence is gone, cleared up. This is due to ? Worse - stopping coffee due to neuropathy, started making dark frosting with liliya crax, too much cocoa which made the neuropathy tingle. Restarted wine daily. Not using the inversion table as much. Nov 2019 Subjective: Neuropathy- none with no caffeine. Had some yesterday. Getting great counseling with Swati. She feels great, using the inversion table and it is so helpful.her eyesight is better. Stool incontinence, tested with veggies and now are good. Sweet potatoes, yellow sq , and gluten--> can eat a cookie with no problem and all those things. Started the target PGX, so stopped kimber neri. Her bowels are every other day, a lot of plugging the toilet. August 2019 Subjective: Dr Bedolla Stopped all caffeine, due to neuropathy. One per week, then more ,now 3 days per week, now off it. Lives alone, son not with her, grand kids away, friends all and old. Things that are blocking her: Can't eat- all the things she loves to eat cause her a problem, she has to think about things to do if safe. She did eat ice cream. Apr 2019 Subjective: Dr Bedolla All caffeine foods cause the neuropathy to come back, so better but not gone. Feet still fuzzy feeling. Hands also. Bowels are varied daily. Mostly ok. Diet - gluten causes more mucous, orange foods causes mushy. Follows a gluten ,dairy free diet. + Gliotoxin mycotoxin s iraida, NAC , GI Detox , aRGENTYN--> a fine rash in perineum , stopped all these supplements. Still doing the sauna, dry brushing , lemon in water. Jan 2019 Subjective: Still with neuropathy in her legs, Stools are soft, mushy. Copied from [facility] 11/2018 Has a friend that comes here. 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 Last went in August but is not working with her anymore. Review of Systems: Phlegm Objective: Virtual Physical Exam: Virtual CURRENT Functional Medicine Assessment/ PLAN Nutritional Assessment Low fat , GF Digestive Function Bloating, Loose stools--> fecal incontinence-->gone ( slight due to a lot of tomatoes) Gurgling , gas SIBO negative Madi GI Effects High fecal fats High beta glucuronidase dysbiosis 01/07 Inflammation/Immune Function Dry burning eyes, and throat- gone Throat clearing- CBC reviewed 05/2021 improved Energy Production/Function: Depression- lifted ( target gbx is great ) GONE Some confusion noted Detoxification Function Mold exposure- 15 YRS AGO , 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 ) ( 4419.12 previous GPL 01/2019 / no provoking ) GPL Sep 2020 Gliotoxin GONE Ochratoxin 70.18 Sterigm o mycophenolic acid 47.16 fusarium-Enniatin 2.02 Lesia 0 Citrinin 166.57 GPL Mar 24, 2021 ( GI Detox, NAC, s boulardii, glutathione ) Ochratoxin A - 14.37 All others 0 01/2021 Scr 0.60 GFR 104 7662-9640 mold in her home, cleaned up Chemicals + Sweating now Hormonal Function: Menopause Prolapsed uterus-Pessary Structural Function Assessment Assessment: D70.9 Neutropenia, unspecified type (HCC) (primary encounter diagnosis) U07.1 COVID Plan and Lifestyle Prescription Plan/Instructions/Resources: Tests ordered : Covid supporting supplements: The Basics Quercetin 500 to 1000 mg twice a day Vitamin D3 5,000 U a day or 25OH Vitamin D > 60 Zinc 30 mg twice a day Vitamin C 1000 mg 2 twice a day (liposomal) NAC 600 mg twice a day (or Liposomal Glutathione by [employer] 4 pumps twice a day) 2. Retest Real Time labs and they accept Medicare for myxotoxins. Medications/Supplements Recommended: No orders of the defined types were placed in this encounter. Current Outpatient Medications Medication Sig O.N.E. Multivitamin (Pure Encapsulations) 1 capsule daily, with a meal, 60 ct NAC 600mg (Pure Encapsulations) - liver support (helps make glutathione) 3 capsules, in divided doses, between meals Glutathione (Bancha) - Liver support/detox Use 8 pumps daily (1000mg) divided doses through out the day. (2 pumps = 100 mg Glutathione). Work up slowly to the higher dose. Target GB-X (Allergy Research Group) Dissolve the content of 1 sachet daily in water (3-4 oz.), preferably lukewarm, and stir before consumption. Take on an empty stomach in the morning, before bed, or as directed by a healthcare professional. Digestion GB 180 ct. (Pure Encapsulations) Take 1 capsule with meals OTC NUTRITIONAL SUPPLEMENT lysine Magnesium Glycinate 120 mg (Pure Encapsulations) Take 2 capsules in the evening and 2 in the daytime O.N.E. [place] (Pure Encapsulations) Take 2 capsules by mouth daily with food. Vitamin D3 5000 IUs (Pure Encapsulations) Take 1 capsule by mouth daily with food. No current facility-administered medications for this visit. I recommend the supplements from the [facility] [employer] Online Store at [email or web address] as we have thoroughly evaluated the research and use only highest quality supplements. Code: functional Future Plans: Follow up: Please schedule a follow up visit with the following Caregivers: Provider: 12weeks Follow up appointments are 30 minutes in duration with Dr Bedolla or any provider in our center. Please call or go to Trovebox to schedule a follow up visit. LIFESTYLE PRESCRIPTION Functional Nutrition: per nutrition Sleep: Sleep goal for most adults is a minimum of 7-9 hours nightly. Exercise Prescription: Numerous studies confirm the benefits of regular moderate aerobic exercise (walking, swimming, elliptical machine, cycling, etc.) for 30 min 5 days per week (150 min goal). Stress Management: 1) Please look into this Heart Rate Variability BioFeedback Tool (www.[email or web address]). 2) A regular, daily meditation practice of at least 15-20 minutes will change your brain--as well as your genes! Behavioral Health Therapist: If I recommended counseling or individual therapy, please schedule an individual appointment with our Functional Medicine Behavioral Health Therapist after your visit today. The Behavioral Health Therapist helps patients identify and understand feelings and behaviors, experience the process of making positive change, and gain healthy coping skills. Health Coaching: Please consider scheduling with our [place] [facility] health coaches for a phone or virtual visit for accountability, goal setting and help with behavior change release manager the next 6-8 weeks to be successful with your goals. [phone]. Smart phone apps to begin a meditative practice: Headspace (free for first 10 days) Insight Meditation Timer- (Free)-Great all-around norma to use for guided meditations of many different types and lengths or just to use as a tool to time and track your meditation practice. This is my absolute favorite! Calm- (Free) Walking Meditations-($1.99)- Get your walk AND meditation done together. A good way to start out for individuals who feel they just can't sit still to begin a meditative practice. During the next 6-8 weeks you'll be working on your diet plan discussed with our groundwater consultant, allowing for gentle detoxification and decreasing inflammation - while we are gathering your lab results and combining those with your complete history to formulate a very personalized treatment plan. LAB results: Due to the complexity of the testing performed, we are not able to review labs via MyChart or over the phone, but please know, if any of your labs are critical we will contact you. Otherwise, we will review all your labs at your next visit. Make sure to schedule with the groundwater consultant (this will not happen automatically) as you did with your first visit so that she can review nutritional aspects of your treatment plan. Potential future labs: Any Madi labs ordered take about 4 -6 weeks to return. Do them as soon as possible so that we have the results before your next appointment. You can access them on the [facility] website and it can be beneficial if you review them prior to your next visit. [email or web address]. Read about NutrEval/GI Effects if this was ordered. Please obtain blood draws for the [facility] NutrEval Profile and other test kits ordered by your provider at the [facility] at designated [facility] Labs and times. The designated labs are as follows: ~[place] : Q2 @ [facility] Tuesday-Tuesday 8am-1 pm and 1:30pm-4:30 pm G-10 Tuesday-Tuesday 8am-5pm. ~[facility] : Labs Tuesday-Tuesday 8am-1pm. ~Or at a local lab where you live: [employer] Billing Questions: Please log into the following link if you have questions regarding your Madi Testing Kits ( such as GI Effects, Nutreval, Hydrogen Breath Test ): [email or web address] Time spend with patient: I spent 30 minutes in the visit with more than 50% of the time spent counseling in regards to above. Luna Bedolla MD documented in this encounter [facility] 07-20-2021 History of Presen t illness Narrative Virtual Follow-up Visit This Team Access Model visit is a virtual encounter. It required patient-provider interaction for the medical decision making as documented below. Patient: Cody Meier There is no height or weight on file to calculate BMI. RMR can't be calculated - Weight unrecorded in last 120 days. ALLERGIES Allergen Reactions Epinephrine Mental Status Change passed out Current Outpatient Medications on File Prior to Visit Medication Sig O.N.E. Multivitamin (Pure Encapsulations) 1 capsule daily, with a meal, 60 ct G.I. Detox ([place]) 1-2 capsules with full glass of water 2 times daily between meals NAC 600mg (Pure Encapsulations) - liver support (helps make glutathione) 3 capsules, in divided doses, between meals Glutathione (Bancha) - Liver support/detox Use 8 pumps daily (1000mg) divided doses through out the day. (2 pumps = 100 mg Glutathione). Work up slowly to the higher dose. Target GB-X (Allergy Research Group) Dissolve the content of 1 sachet daily in water (3-4 oz.), preferably lukewarm, and stir before consumption. Take on an empty stomach in the morning, before bed, or as directed by a healthcare professional. Digestion GB 180 ct. (Pure Encapsulations) Take 1 capsule with meals OTC NUTRITIONAL SUPPLEMENT lysine Magnesium Glycinate 120 mg (Pure Encapsulations) Take 2 capsules in the evening and 2 in the daytime O.N.E. [place] (Pure Encapsulations) Take 2 capsules by mouth daily with food. Vitamin D3 5000 IUs (Pure Encapsulations) Take 1 capsule by mouth daily with food. No current facility-administered medications on file prior to visit. PAST MEDICAL HISTORY Diagnosis Date Gluten intolerance NEGATIVE MEDICAL HISTORY Other voice and resonance disorders due to multiple allergies Uterine prolapse PAST SURGICAL HISTORY Procedure Laterality Date ENDOSCOPY, ESOPHAGUS for hoarseness-negative LIGATE FALLOPIAN TUBE Tubal ligation PAST SURGICAL HISTORY OF left breast biopsy Social History Tobacco Use Smoking status: Former Smoker Types: Cigarettes Quit date: 04/26/1977 Years since quittin.2 Smokeless tobacco: Never Used Tobacco comment: Pt smoked 1-2 packs daily on & off x 10 years. Substance Use Topics Alcohol use: No Alcohol/week: 2.5 standard drinks Types: 1 Glasses of Wine (5oz) per week Drug use: No Functional Medicine Timeline Patient Entered Questionnaire PROMIS Scale T-Scores -- HIGHER SCORES BETTER PROMIS Global Health - (T-Scores - the mean of general population = 50. Five points is a clinically meaningful difference.) 06/18/2021 07/07/2021 07/16/2021 Physical T-Score 50.8 - 50.8 Mental T-Score 48.3 50.8 56 Depression Screening: PHQ-9 04/28/2019 01/26/2020 Score 2 0 PHQ-9 Self Harm 04/28/2019 01/26/2020 Question 9 Not at all Not at all PHQ-9 Self-Harm (Item 9) response options: 0 Not at all 1 Several days 2 More than half the days 3 Nearly every day PHQ-9 Levels: 0-4 Minimal depression 5-9 Mild depression 10-14 Moderate depression 15-19 Moderately severe depression 20-27 Severe depression July 20, 2021 Luna Bedolla MD Subjective: Virtual 76 yr old with mold, extremity neuropathy, loose stools. Stopped the s boulardii 6 weeks ago, tried the gi detox one per day based on tolerance, ok until July 03, so stopped all. Feeling overwhelmed responsibilities to care for her living space. April 16, 2021 Luna Bedolla MD ( [place]) Subjective: Virtual 75 yr old female with hx lower extremity neuropathy, loose stools, + mold and mycotoxins. Pt was last seen January 2021. Things are under control, spelt organic pretzels- if she has too many daily then having issues. Stress is good, staying at home, sewing, one volunteer day. Spending time with food prep. January 16, 2021 Luna Bedolla MD Subjective: Virtual The diarrhea situation was ? Related to a lot of food fresh at the same time. Then it settled down. Sauerkraut caused issues. Going out it can be hard. Exercise now more. 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 October 15, 2020 Luna Bedolla MD Subjective: Virtual Some ways doing well and then relapse - some diarrhea for weeks. Started to eat fresh tomatoes a lot. All of a sudden- she gets happy in August/ September ( has SAD ) uses a sun box daily. Her friend started her in a book group that was wonder. June 16, 2020 Luna Bedolla MD Subjective: Virtual Feeling worse, taking GI Detox and almond butter. Feb 2020 Subjective: virtual MOLD Update: Better -depression vida with the winter ( she likes being alone so lock down is ok ) , brain fog , Things are not overwhelm her like before, control over sugar cravings/ salt/ fat. Stool incontinence is gone, cleared up. This is due to ? Worse - stopping coffee due to neuropathy, started making dark frosting with liliya crax, too much cocoa which made the neuropathy tingle. Restarted wine daily. Not using the inversion table as much. Nov 2019 Subjective: Neuropathy- none with no caffeine. Had some yesterday. Getting great counseling with Swati. She feels great, using the inversion table and it is so helpful.her eyesight is better. Stool incontinence, tested with veggies and now are good. Sweet potatoes, yellow sq , and gluten--> can eat a cookie with no problem and all those things. Started the target PGX, so stopped s johndii. Her bowels are every other day, a lot of plugging the toilet. August 2019 Subjective: Dr Bedolla Stopped all caffeine, due to neuropathy. One per week, then more ,now 3 days per week, now off it. Lives alone, son not with her, grand kids away, friends all and old. Things that are blocking her: Can't eat- all the things she loves to eat cause her a problem, she has to think about things to do if safe. She did eat ice cream. Apr 2019 Subjective: Dr Bedolla All caffeine foods cause the neuropathy to come back, so better but not gone. Feet still fuzzy feeling. Hands also. Bowels are varied daily. Mostly ok. Diet - gluten causes more mucous, orange foods causes mushy. Follows a gluten ,dairy free diet. + Gliotoxin mycotoxin s boullardi, NAC , GI Detox , aRGENTYN--> a fine rash in perineum , stopped all these supplements. Still doing the sauna, dry brushing , lemon in water. Jan 2019 Subjective: Still with neuropathy in her legs, Stools are soft, mushy. Copied from Sus[facility] Patterson 11/2018 Has a friend that comes here. 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 Last went in August but is not working with her anymore. Review of Systems: Throat clearing Objective: Virtual Physical Exam: Virtual CURRENT Functional Medicine Assessment/ PLAN Nutritional Assessment Low fat , GF Digestive Function Bloating, Loose stools--> fecal incontinence-->gone ( slight due to a lot of tomatoes) Gurgling , gas SIBO negative Madi GI Effects High fecal fats High beta glucuronidase dysbiosis 01/07 Inflammation/Immune Function Dry burning eyes, and throat- gone Throat clearing- CBC reviewed 05/2021 improved Energy Production/Function: Depression- lifted ( target gbx is great ) GONE Some confusion noted Detoxification Function Mold exposure- 15 YRS AGO , 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 ) ( 4419.12 previous GPL 01/2019 / no provoking ) GPL Sep 2020 Gliotoxin GONE Ochratoxin 70.18 Sterigm o mycophenolic acid 47.16 fusarium-Enniatin 2.02 Lesia 0 Citrinin 166.57 GPL Mar 24, 2021 ( GI Detox, NAC, s boulardii, glutathione ) Ochratoxin A - 14.37 All others 0 01/2021 Scr 0.60 GFR 104 4292-8785 mold in her home, cleaned up Chemicals + Sweating now Hormonal Function: Menopause Prolapsed uterus-Pessary Structural Function Assessment Assessment: Z77.120 Mold exposure (primary encounter diagnosis) R09.89 Throat clearing Plan and Lifestyle Prescription Plan/Instructions/Resources: Neutrapenia improved Tests ordered :none 1. Use air purifier in your bedroom at night time. 2. For nose- Xlear nasal spray twice daily 3. Gas stove- open your window in the kitchen when using this. 4. Stop the mold treatment , can continue NAC since this detoxifies a lot of other things. ONE per day. Medications/Supplements Recommended: No orders of the defined types were placed in this encounter. Current Outpatient Medications Medication Sig O.N.E. Multivitamin (Pure Encapsulations) 1 capsule daily, with a meal, 60 ct NAC 600mg (Pure Encapsulations) - liver support (helps make glutathione) 3 capsules, in divided doses, between meals Glutathione (Bancha) - Liver support/detox Use 8 pumps daily (1000mg) divided doses through out the day. (2 pumps = 100 mg Glutathione). Work up slowly to the higher dose. Target GB-X (Allergy Research Group) Dissolve the content of 1 sachet daily in water (3-4 oz.), preferably lukewarm, and stir before consumption. Take on an empty stomach in the morning, before bed, or as directed by a healthcare professional. Digestion GB 180 ct. (Pure Encapsulations) Take 1 capsule with meals OTC NUTRITIONAL SUPPLEMENT lysine Magnesium Glycinate 120 mg (Pure Encapsulations) Take 2 capsules in the evening and 2 in the daytime O.N.E. [place] (Pure Encapsulations) Take 2 capsules by mouth daily with food. Vitamin D3 5000 IUs (Pure Encapsulations) Take 1 capsule by mouth daily with food. No current facility-administered medications for this visit. I recommend the supplements from the [facility] Healthy Living Shop Online Store at [email or web address] as we have thoroughly evaluated the research and use only highest quality supplements. Code: functional Future Plans: mold Follow up: Please schedule a follow up visit with the following Caregivers: Provider: as indicated weeks X 4-6 months Follow up appointments are 30 minutes in duration with Dr Bedolla or any provider in our center. Please call or go to [employer] to schedule a follow up visit. LIFESTYLE PRESCRIPTION Functional Nutrition: per nutrition Sleep: Sleep goal for most adults is a minimum of 7-9 hours nightly. Exercise Prescription: Numerous studies confirm the benefits of regular moderate aerobic exercise (walking, swimming, elliptical machine, cycling, etc.) for 30 min 5 days per week (150 min goal). Stress Management: 1) Please look into this Heart Rate Variability BioFeedback Tool (www.heartmath.org). 2) A regular, daily meditation practice of at least 15-20 minutes will change your brain--as well as your genes! Behavioral Health Therapist: If I recommended counseling or individual therapy, please schedule an individual appointment with our Functional Medicine Behavioral Health Therapist after your visit today. The Behavioral Health Therapist helps patients identify and understand feelings and behaviors, experience the process of making positive change, and gain healthy coping skills. Health Coaching: Please consider scheduling with our [facility] health coaches for a phone or virtual visit for accountability, goal setting and help with behavior change release manager the next 6-8 weeks to be successful with your goals. [phone]. Smart phone apps to begin a meditative practice: Headspace (free for first 10 days) Insight Meditation Timer- (Free)-Great all-around norma to use for guided meditations of many different types and lengths or just to use as a tool to time and track your meditation practice. This is my absolute favorite! Calm- (Free) Walking Meditations-($1.99)- Get your walk AND meditation done together. A good way to start out for individuals who feel they just can't sit still to begin a meditative practice. During the next 6-8 weeks you'll be working on your diet plan discussed with our groundwater consultant, allowing for gentle detoxification and decreasing inflammation - while we are gathering your lab results and combining those with your complete history to formulate a very personalized treatment plan. LAB results: Due to the complexity of the testing performed, we are not able to review labs via Warply or over the phone, but please know, if any of your labs are critical we will contact you. Otherwise, we will review all your labs at your next visit. Make sure to schedule with the groundwater consultant (this will not happen automatically) as you did with your first visit so that she can review nutritional aspects of your treatment plan. Potential future labs: Any [facility] labs ordered take about 4 -6 weeks to return. Do them as soon as possible so that we have the results before your next appointment. You can access them on the [facility] website and it can be beneficial if you review them prior to your next visit. [email or web address]. Read about NutrEval/GI Effects if this was ordered. Please obtain blood draws for the [facility] NutrEval Profile and other test kits ordered by your provider at the [facility] at designated [facility] Labs and times. The designated labs are as follows: ~[place] : 1. Q2 @ [facility] Tuesday-Tuesday 8am-1 pm and 1:30pm-4:30 pm 2. G-10 Tuesday-Tuesday 8am-5pm. ~[facility] : Labs Tuesday-Tuesday 8am-1pm. ~Or at a local lab where you live: [employer] Billing Questions: Please log into the following link if you have questions regarding your [facility] Testing Kits ( such as GI Effects, Nutreval, Hydrogen Breath Test ): [email or web address] Time spend with patient: I spent 30 minutes in the visit with more than 50% of the time spent counseling in regards to above. Luna Bedolla MD documented in this encounter [facility] 07-14-2021 Miscellaneous Notes 07/14/21 Received labs and/or testing ordered by [facility] Provider: Leeroy Available on Labs tab in Epic Chart review via Care Everywhere No Available in F-Drive for up to 60 days: Yes Outside records received via: Email from patient Please review and contact patient to advise of any urgent concerns. Kelli Mendosa Admin documented in this encounter [facility] Diagnosis Adjustment disorder with anxious mood- Primary Adjustment disorder with anxiety [facility] [place] [facility] Diagnosis Adjustment disorder with anxious mood- Primary Adjustment disorder with anxiety [facility] Diagnosis Mold exposure- Primary Contact with and (suspected) exposure to mold Throat clearing Other symptoms involving head and neck [facility] [place] [facility]* Diagnosis Adjustment disorder with anxious mood- Primary Adjustment disorder with anxiety [facility] Diagnosis Adjustment disorder with anxious mood- Primary Adjustment disorder with anxiety [facility] Diagnosis Adjustment disorder with anxious mood- Primary Adjustment disorder with anxiety [facility] Diagnosis Neutropenia, unspecified type (HCC)- Primary COVID [facility] Diagnosis Mold exposure- Primary Contact with and (suspected) exposure to mold Loose stools Abnormal feces [facility] Diagnosis Stress- Primary Other psychological or physical stress, not elsewhere classified [facility] Diagnosis Mold exposure- Primary Contact with and (suspected) exposure to mold [facility] Diagnosis Adjustment disorder with mixed anxiety and depressed mood- Primary [facility] [place] [facility] Diagnosis Adjustment disorder with mixed anxiety and depressed mood- Primary documented in this encounter [facility]* Diagnosis Mold exposure- Primary Contact with and (suspected) exposure to mold Constipation, unspecified constipation type documented in this encounter [facility] note* Diagnosis Adjustment disorder with mixed anxiety and depressed mood- Primary documented in this encounter [facility] note* Diagnosis Abnormal stool test- Primary Nonspecific abnormal finding in stool contents documented in this encounter [facility] note* Diagnosis Adjustment disorder with mixed anxiety and depressed mood- Primary documented in this encounter [facility] note* Diagnosis Intestinal dysbiosis- Primary Fatigue, unspecified type documented in this encounter [facility] Reason for Referral Specialty Diagnoses / Procedures Referred By Rosanna gonzalez Referred To Contact Diagnoses Mold exposure Constipation, unspecified constipation type Procedures CONSULT TO FUNCTIONAL MEDICINE OFFICE/OUTPATIENT [facility] 60-74 MINUTES Luna Bedolla MD [address] [place] [address] Referral ID Status Reason Start Date Expiration Date Visits Requested Visits Authorized [id number] Authorized PCP Requested Referral 09/28/2022 09/28/2023 1 1 Summary Purpose Family History No Family History Records Found Advance Directives No Advanced Directives Records Found Additional Source Comments Source Comments (unrecognize d section and content) In the event this informatio n is protected by the Federal Confidentiality of Alcohol and Drug Abuse Patient Records regulations: The Federal rules restrict any use of the information to criminally investigate or prosecute any alcohol or drug abuse patient.[facility] the event this information is protected by the Federal Confidentiality of Alcohol and Drug Abuse Patient Records regulations: The Federal rules restrict any use of the information to criminally investigate or prosecute any alcohol or drug abuse patient.[facility] the event this information is protected by the Federal Confidentiality of Alcohol and Drug Abuse Patient Records regulations: The Federal rules restrict any use of the information to criminally investigate or prosecute any alcohol or drug abuse patient.[facility] the event this information is protected by the Federal Confidentiality of Alcohol and Drug Abuse Patient Records regulations: The Federal rules restrict any use of the information to criminally investigate or prosecute any alcohol or drug abuse patient.[facility] the event this information is protected by the Federal Confidentiality of Alcohol and Drug Abuse Patient Records regulations: The Federal rules restrict any use of the information to criminally investigate or prosecute any alcohol or drug abuse patient.[facility] Hospital[facility] the event this information is protected by the Federal Confidentiality of Alcohol and Drug Abuse Patient Records regulations: The Federal rules restrict any use of the information to criminally investigate or prosecute any alcohol or drug abuse patient.[facility] the event this information is protected by the Federal Confidentiality of Alcohol and Drug Abuse Patient Records regulations: The Federal rules restrict any use of the information to criminally investigate or prosecute any alcohol or drug abuse patient.[facility] Hospital[facility] the event this information is protected by the Federal Confidentiality of Alcohol and Drug Abuse Patient Records regulations: The Federal rules restrict any use of the information to criminally investigate or prosecute any alcohol or drug abuse patient.[facility] Hospital[facility] the event this information is protected by the Federal Confidentiality of Alcohol and Drug Abuse Patient Records regulations: The Federal rules restrict any use of the information to criminally investigate or prosecute any alcohol or drug abuse patient.[facility] the event this information is protected by the Federal Confidentiality of Alcohol and Drug Abuse Patient Records regulations: The Federal rules restrict any use of the information to criminally investigate or prosecute any alcohol or drug abuse patient.[facility] HospitalIn the event this information is protected by the Federal Confidentiality of Alcohol and Drug Abuse Patient Records regulations: The Federal rules restrict any use of the information to criminally investigate or prosecute any alcohol or drug abuse patient.[facility] HospitalIn the event this information is protected by the Federal Confidentiality of Alcohol and Drug Abuse Patient Records regulations: The Federal rules restrict any use of the information to criminally investigate or prosecute any alcohol or drug abuse patient.[facility] HospitalIn the event this information is protected by the Federal Confidentiality of Alcohol and Drug Abuse Patient Records regulations: The Federal rules restrict any use of the information to criminally investigate or prosecute any alcohol or drug abuse patient.[facility] HospitalIn the event this information is protected by the Federal Confidentiality of Alcohol and Drug Abuse Patient Records regulations: The Federal rules restrict any use of the information to criminally investigate or prosecute any alcohol or drug abuse patient.[facility] HospitalIn the event this information is protected by the Federal Confidentiality of Alcohol and Drug Abuse Patient Records regulations: The Federal rules restrict any use of the information to criminally investigate or prosecute any alcohol or drug abuse patient.[facility] HospitalIn the event this information is protected by the Federal Confidentiality of Alcohol and Drug Abuse Patient Records regulations: The Federal rules restrict any use of the information to criminally investigate or prosecute any alcohol or drug abuse patient.[facility] HospitalIn the event this information is protected by the Federal Confidentiality of Alcohol and Drug Abuse Patient Records regulations: The Federal rules restrict any use of the information to criminally investigate or prosecute any alcohol or drug abuse patient.[facility] HospitalIn the event this information is protected by the Federal Confidentiality of Alcohol and Drug Abuse Patient Records regulations: The Federal rules restrict any use of the information to criminally investigate or prosecute any alcohol or drug abuse patient.[facility] HospitalIn the event this information is protected by the Federal Confidentiality of Alcohol and Drug Abuse Patient Records regulations: The Federal rules restrict any use of the information to criminally investigate or prosecute any alcohol or drug abuse patient.[facility] HospitalIn the event this information is protected by the Federal Confidentiality of Alcohol and Drug Abuse Patient Records regulations: The Federal rules restrict any use of the information to criminally investigate or prosecute any alcohol or drug abuse patient.[facility] HospitalIn the event this information is protected by the Federal Confidentiality of Alcohol and Drug Abuse Patient Records regulations: The Federal rules restrict any use of the information to criminally investigate or prosecute any alcohol or drug abuse patient.[facility] HospitalIn the event this information is protected by the Federal Confidentiality of Alcohol and Drug Abuse Patient Records regulations: The Federal rules restrict any use of the information to criminally investigate or prosecute any alcohol or drug abuse patient.[facility] HospitalIn the event this information is protected by the Federal Confidentiality of Alcohol and Drug Abuse Patient Records regulations: The Federal rules restrict any use of the information to criminally investigate or prosecute any alcohol or drug abuse patient.[facility] HospitalIn the event this information is protected by the Federal Confidentiality of Alcohol and Drug Abuse Patient Records regulations: The Federal rules restrict any use of the information to criminally investigate or prosecute any alcohol or drug abuse patient.[facility] HospitalIn the event this information is protected by the Federal Confidentiality of Alcohol and Drug Abuse Patient Records regulations: The Federal rules restrict any use of the information to criminally investigate or prosecute any alcohol or drug abuse patient.[facility] HospitalIn the event this information is protected by the Federal Confidentiality of Alcohol and Drug Abuse Patient Records regulations: The Federal rules restrict any use of the information to criminally investigate or prosecute any alcohol or drug abuse patient.[facility] HospitalIn the event this information is protected by the Federal Confidentiality of Alcohol and Drug Abuse Patient Records regulations: The Federal rules restrict any use of the information to criminally investigate or prosecute any alcohol or drug abuse patient.[facility] HospitalIn the event this information is protected by the Federal Confidentiality of Alcohol and Drug Abuse Patient Records regulations: The Federal rules restrict any use of the information to criminally investigate or prosecute any alcohol or drug abuse patient.[facility] HospitalIn the event this information is protected by the Federal Confidentiality of Alcohol and Drug Abuse Patient Records regulations: The Federal rules restrict any use of the information to criminally investigate or prosecute any alcohol or drug abuse patient.[facility] HospitalIn the event this information is protected by the Federal Confidentiality of Alcohol and Drug Abuse Patient Records regulations: The Federal rules restrict any use of the information to criminally investigate or prosecute any alcohol or drug abuse patient.[facility] Reason for Visit (unrecogniz ed section and content) Reason Comments Established Patient Reason Comments Received Outside Medical Records Reason Comments Established Patient Care Teams (unrecognized sec tion and content) Mechanical Sound Technician Relationship Specialty Start Date End Date Anil Boss MD [address] [place] [address] PCP - General Family Practice 04/26/17 Mechanical Sound Technician Relationship Specialty Start Date End Date Anil Boss MD [address] [place] [address] PCP - General Family Practice 04/26/17 Mechanical Sound Technician Relationship Specialty Start Date End Date Anil Boss MD [address] [place] [address] PCP - General Family Practice 04/26/17 Mechanical Sound Technician Relationship Specialty Start Date End Date Anil Boss MD [address] [place] [address] PCP - General Family Practice 04/26/17 Mechanical Sound Technician Relationship Specialty Start Date End Date Anil Boss MD [address] [place] [address] PCP - General Family Practice 04/26/17 Mechanical Sound Technician Relationship Specialty Start Date End Date Anil Boss MD [address] [place] [address] PCP - General Family Practice 04/26/17 Mechanical Sound Technician Relationship Specialty Start Date End Date Anil Boss MD [address] [place] [address] PCP - General Family Medicine 04/26/17 Mechanical Sound Technician Relationship Specialty Start Date End Date Anil Boss MD [address] [place] [address] PCP - General Family Medicine 04/26/17 Mechanical Sound Technician Relationship Specialty Start Date End Date Anil Boss MD [address] [place] [address] PCP - General Family Medicine 04/26/17 Mechanical Sound Technician Relationship Specialty Start Date End Date Anil Boss MD [address] [place] [address] PCP - General Family Medicine 04/26/17 Mechanical Sound Technician Relationship Specialty Start Date End Date Anil Boss MD [address] [place] [address] PCP - General Family Medicine 04/26/17 Mechanical Sound Technician Relationship Specialty Start Date End Date Anil Boss MD [address] [place] [address] PCP - General Family Medicine 04/26/17 Mechanical Sound Technician Relationship Specialty Start Date End Date Anil Boss MD [address] [place] [address] PCP - General Family Medicine 04/26/17 Mechanical Sound Technician Relationship Specialty Start Date End Date Anil Boss MD [address] [place] [address] PCP - General Family Medicine 04/26/17 Mechanical Sound Technician Relationship Specialty Start Date End Date Anil Boss MD [address] [facility] [place] [address] PCP - General Family Medicine 04/26/17 Mechanical Sound Technician Relationship Specialty Start Date End Date Anil Boss MD [address] [facility] [place] [address] PCP - General Family Medicine 04/26/17 Mechanical Sound Technician Relationship Specialty Start Date End Date Anil Boss MD [address] [facility] [place] [address] PCP - General Family Medicine 04/26/17 Mechanical Sound Technician Relationship Specialty Start Date End Date Anil Boss MD [address] [facility] [place] [address] PCP - General Family Medicine 04/26/17 Mechanical Sound Technician Relationship Specialty Start Date End Date Anil Boss MD [address] [facility] [address] PCP - General Family Medicine 04/26/17 Mechanical Sound Technician Relationship Specialty Start Date End Date Anil Boss MD [address] [facility] [place] [address] PCP - General Family Medicine 04/26/17 Mechanical Sound Technician Relationship Specialty Start Date End Date Anil Boss MD [address] [facility] [place] [address] PCP - General Family Medicine 04/26/17 INFORMATION SOURCE (unrecogn ized section and content) FOR RECORDS PERTAINING TO PATIENTS WHO ARE OR HAVE BEEN ENROLLED IN A CHEMICAL DEPENDENCY/SUBSTANCEABUSE PROGRAM, SOME INFORMATION MAY BE OMITTED. This clinical summary was aggregated from multiple sources. Caution should be exercised in using it in the provision of clinical care. This summary normalizes information from multiple sources, and as a consequence, information in this document may materially change the coding, format and clinical context of patient data. In addition, data may be omitted in some cases. CLINICAL DECISIONS SHOULD BE BASED ON THE PRIMARY CLINICAL RECORDS. [facility], [facility]. provides no warranty or guarantee of the accuracy or completeness of information in this document.
[2023-04-11 10:12] LABS: Hematocrit 41.1 % (37-47); Hemoglobin 13.3 g/dL (12.0-15.0); Mean Corp Hgb Conc 32.4 g/dL (32-36); Mean Corpuscular Hgb 30.6 pg (27.0-32.0); Mean Corpuscular Volume 94.5 fL (81-99); Mean Platelet Vol. 9.4 fl (6.2-12.0); Platelet Count 278 K/mm3 (150-450); RBC Distribution Width CV 12.5 % (11.6-14.6); RBC Distribution Width SD 43.8 fl (35.1-43.9); Red Blood Count 4.35 M/mm3 (4.2-5.4); White Blood Count 3.5 K/mm3 (4.4-11.0)
[2023-04-11 10:38] LABS: Vitamin D,25 Hydroxy 82.7 ng/mL
[2023-04-11 10:53] LABS: ALB/GLOB Ratio 1.1 RATIO (0.9-2.4); AST(SGOT) 31 U/L (15-37); Alanine Aminotransfer ALT/SGPT 26 U/L (13-56); Albumin, Serum 3.7 g/dL (3.2-5.0); Alkaline Phosphatase 67 U/L (45-117); Anion Gap 3 (5-15); BUN 17 mg/dL (7-18); BUN/Creat Ratio 28.8 RATIO (10-20); Calcium,Total 8.7 mg/dL (8.5-10.1); Chloride 108 mmol/L (98-107); Cholesterol 241 mg/dL (200); Creatinine, Serum 0.59 mg/dL (0.55-1.02); EST Glomerular Filtration Rate 105 mL/min (>60); Est Glom Filt Rate - Afr Amer 127 mL/min (>60); Free T3 2.6 pg/mL (2.18-3.98); Globulin 3.3 g/dL (2.2-4.2); Glucose 100 mg/dL (74-106); High Density Lipoprotein 78 mg/dL; Potassium 3.7 mmol/L (3.5-5.1); Sodium Level 140 mmol/L (136-145); Thyroid Stim Hormone (TSH) 1.79 uIU/mL (0.358-3.74); Triglycerides 55 mg/dL; Very Low Density Lipoprotein 11 mg/dL (5-40)
== END | disposition home or self-care (01) ==
LOC: MFPLAB 09:06
PROVIDERS: PCP Family Medicine; Visit Provider Family Medicine
DX: E03.9 Hypothyroidism, unspecified (principal); K90.9 Intestinal malabsorption, unspecified; E55.9 Vitamin D deficiency, unspecified
CPT/HCPCS: 36415; 80053; 80061; 82306; 84439; 84443; 84481; 85027

== ENCOUNTER → 2024-05-02 | Outpatient (CLI) | payer MEDICARE, OTHER, SELFPAY ==
[2024-05-02 10:28] LABS: Erythrocyte Sedimentation Rate 7 mm/hr (0-30)
[2024-05-02 10:30] LABS: Hematocrit 37.1 % (37-47); Hemoglobin 12.4 g/dL (12.0-15.0); Mean Corp Hgb Conc 33.4 g/dL (32-36); Mean Corpuscular Hgb 29.5 pg (27.0-32.0); Mean Corpuscular Volume 88.3 fL (81-99); Mean Platelet Vol. 9.9 fl (6.2-12.0); Platelet Count 260 K/mm3 (150-450); RBC Distribution Width CV 13.3 % (11.6-14.6); White Blood Count 3.2 K/mm3 (4.4-11.0)
[2024-05-02 10:59] LABS: ALB/GLOB Ratio 1.6 RATIO (0.9-2.4); AST(SGOT) 30 U/L (<=31); Alanine Aminotransfer ALT/SGPT 19 U/L (<=34); Alkaline Phosphatase 72 U/L (35-104); Anion Gap 11 (5-15); BUN 16 mg/dL (4-19); BUN/Creat Ratio 26.3 RATIO (10-20); Carbon Dioxide 23.5 mmol/L (21.0-32.0); Chloride 102 mmol/L (98-108); Creatinine, Serum 0.59 mg/dL (0.70-1.20); EST Glomerular Filtration Rate 93 (>60); Globulin 2.5 g/dL (2.2-4.2); Glucose 106 mg/dL (70-99); Potassium 3.7 mmol/L (3.3-5.1); Protein, Total 6.5 g/dL (5.9-8.4); Sodium Level 137 mmol/L (133-145)
[2024-05-02 11:00] LABS: Free T3 2.7 pg/mL (2.18-3.98); Vitamin D,25 Hydroxy 52.3 ng/mL (30-100)
[2024-05-02 11:57] LABS: PTHIN 39 pg/mL (11-61)
[2024-05-02 23:41] LABS: CPK Total, Creatine Kinase 177 U/L (24-195)
== END | disposition home or self-care (01) ==
LOC: MFPLAB 09:08
PROVIDERS: PCP Family Medicine; Referring Provider Family Medicine; Visit Provider Family Medicine
DX: E03.9 Hypothyroidism, unspecified (principal); E55.9 Vitamin D deficiency, unspecified; K90.9 Intestinal malabsorption, unspecified
CPT/HCPCS: 36415; 80053; 82306; 82550; 83970; 84439; 84443; 84481; 85027; 85652

== ENCOUNTER → 2024-10-25 | Outpatient (CLI) | payer MEDICARE, OTHER, SELFPAY | END | disposition home or self-care (01) | LOC: LABSPEC 11:31 | PROVIDERS: PCP Family Medicine; Referring Provider Family Medicine; Visit Provider Family Medicine | DX: R19.7 Diarrhea, unspecified (principal) ==